=== PATIENT | male | born 1980 | race Caucasian/White ===

== ENCOUNTER 2022-06-21 08:39 | Inpatient (IN) ==
--- NOTE | 2022-06-21 08:58 | Emergency Department Note ---
HPI General Chief complaint: Abdominal Pain Stated complaint: Numbness Time Seen by Provider: 06/21/22 08:57 Source: patient Mode of arrival: ambulatory Limitations: no limitations History of Present Illness HPI Narrative: Narrative: Patient is a 42-year-old male with a history significant for a large amount of alcohol use who presents to the emergency department due to concern for yellow discoloration of his eyes and skin. Patient states that he has had heavy alcohol use until for 5 months ago, and at that time had a decrease from approximately 12 beers a day to 5 or 6 beers a day. He states that about a week ago he noticed yellow discoloration of his eyes and skin, so completely stopped drinking alcohol at that time. He states that since then he has continued to have the yellow discoloration of his skin as well as some abdominal pain. He endorses tremors, but denies any other symptoms at this time. Related Data Home Medications Medication Instructions Recorded Confirmed No Known Home Meds 06/21/22 06/21/22 Allergies Allergy/AdvReac Type Severity Reaction Status Date / Time No Known Drug Allergies Allergy Verified 06/21/22 18:10 Review of Systems ROS ROS Narrative: Narrative: Constitutional: Denies fever or weakness Eyes: Denies eye pain or vision change ENT ED: Denies throat pain, hearing loss or rhinorrhea Cardiovascular: Denies chest pain, dyspnea on exertion, orthopnea or edema Respiratory: Denies shortness of breath or cough Gastrointestinal: Reports abdominal pain; Denies nausea, vomiting, diarrhea, constipation, hematochezia or melena Genitourinary: Denies dysuria, frequency or hematuria Musculoskeletal: Denies back pain or myalgia Integumentary: Denies rash or lesions Neurological: Denies headache, weakness, numbness, confusion, abnormal gait or dizziness Endocrine: Denies fatigue or polyuria Hematological/Lymphatic: Denies easy bleeding or easy bruising [facility] Narrative Patient History Narrative: Narrative: Medical/Surgical/Family History All Active Problems (Updated 06/21/22 @ 19:37 by Mika Redmond MD) Thrombocytopenia (Acute) Anemia, normocytic normochromic (Acute) Coagulopathy (Acute) Transaminitis (Acute) Alcoholic hepatitis without ascites (Acute) Alcohol withdrawal with delirium (Acute) Exam Narrative Narrative: Narrative: General Limitations: no limitations General appearance: Present alert and in no apparent distress; Absent anxious, appears intoxicated or sleepy Head Head: Present atraumatic and normocephalic Eye Eye: Present PERRL, EOMI and scleral icterus; Absent conjunctival injection, nystagmus, miosis (constriction) or mydriasis (dilation) ENT ENT: Present mucous membranes moist; Absent nasal congestion Neck Neck: Present full ROM; Absent tenderness Chest Chest: Present normal inspection and symmetric chest wall rise; Absent tenderness Respiratory Respiratory: Present normal lung sounds bilaterally; Absent respiratory distress or accessory muscle use Cardiovascular Cardiovascular: Present normal rhythm, tachycardia and normal heart sounds Adbominal Abdominal: Present soft and normal bowel sounds; Absent distention or tenderness Extremities Extremities: Present normal inspection and full ROM Back Back: Present normal inspection and full ROM Neurological Neurological: Present alert and oriented X3 Psychiatric Psychiatric: Present normal affect and normal mood Skin Skin: Present warm (WNL), dry and normal color Course Vital Signs Vital signs: Vital Signs Pulse Rate 126 H 06/21/22 08:44 Respiratory Rate 20 06/21/22 08:44 Blood Pressure 150/97 06/21/22 08:44 Pulse Oximetry (%) 98 06/21/22 08:44 Oxygen Delivery Method 06/21/22 08:44 Temperature 99 F 06/21/22 17:15 Pulse Rate 115 H 06/21/22 17:15 Respiratory Rate 14 06/21/22 17:15 Blood Pressure 148/102 06/21/22 17:15 Pulse Oximetry (%) 100 06/21/22 17:15 Oxygen Delivery Method 06/21/22 17:15 [facility] MDM Narrative Medical decision making narrative: Narrative: Patient is a 42-year-old male who presents to the emergency department due to concern for jaundice. Patient does have tremors on exam, and when an attempt was made to perform an EKG patient was unable to stay still, so we were unable to get an adequate EKG. Due to patient's tremors on reevaluation I again asked patient about other symptoms of alcohol withdrawal, and he at that time endorsed visual and auditory hallucinations. Patient denies history of alcohol withdrawal, but due to concern for this patient was given Ativan. He had signif icant improvement in symptoms with the single dose of Ativan. CIWA protocol has been ordered. Patient's labs are significant for an elevated bilirubin. I performed a bedside ultrasound of the gallbladder and did not find gallstones, sludge, pericholecystic fluid, or thickened gallbladder wall. Patient's PT/INR is mildly elevated. I discussed patient with Dr. Mariee and he has agreed to see and evaluate patient for admission due to concern for alcohol withdrawal. Lab Data Result diagrams: 06/21/22 10:33 Labs: Lab Results 06/21/22 06/21/22 06/21/22 Range/Units 10:17 10:20 10:33 WBC 3.3 L (4.5-11.0) K/mcL RBC 4.05 L (4.63-6.08) M/mcL Hgb 13.6 L (13.7-17.5) g/dL Hct 40.3 (40.1-51.0) % POC Hct 44.0 (41-55) MCV 99.5 (80.0-100.0) fL MCH 33.6 (26.0-34.0) pg MCHC 33.7 (31.0-36.0) g/dL RDW 12.5 (11.5-14.5) % Plt Count 43 L* (140-440) K/mcL MPV 10.2 (8.8-12.5) fL Immature Gran % (Auto) 0.3 (0.0-0.5) % Neut % (Auto) 60.2 (38.0-78.0) % Lymph % (Auto) 23.3 (15.5-49.0) % [place] % (Auto) 14.1 H (1.0-12.0) % Eos % (Auto) 1.8 (0.0-7.0) % Baso % (Auto) 0.3 (0.0-2.0) % Lymph # (Auto) 0.76 L (1.50-4.80) K/mcL [place] # (Auto) 0.46 (0.10-0.90) K/mcL Eos # (Auto) 0.06 (0.00-0.70) K/mcL Baso # (Auto) 0.01 (0.00-0.30) K/mcL Immature Gran # 0.01 (0.00-0.05) K/mcl Absolute Neutrophils 1.96 (1.80-8.00) K/mcL PT (11.9-14.5) sec INR (0.9-1.1) Fibrinogen (200-400) mg/dL D-Dimer (0.27-0.50) ug/mL POC Sodium 135 (133-145) POC Potassium 3.3 (3.3-5.1) POC Chloride 95 L (96-108) POC Total CO2 25.0 (22-30) POC BUN 7 (6-20) POC Creatinine 0.7 (0.6-1.2) POC Glucose 100 (70-105) POC WB Ioniz Calcium 1.20 (1.16-1.32) Total Bilirubin (0.1-1.0) mg/dL Direct Bilirubin (<0.3) mg/dL AST (<40) U/L ALT (<40) U/L Alkaline Phosphatase (39-117) U/L Total Protein (5.9-8.4) gm/dL Albumin (3.2-5.2) gm/dL Globulin (2.2-3.7) gm/dL Lipase (7-60) U/L POC Troponin I < 0.02 (0.00-0.08) 06/21/22 06/21/22 06/21/22 Range/Units 10:33 10:33 10:33 WBC (4.5-11.0) K/mcL RBC (4.63-6.08) M/mcL Hgb (13.7-17.5) g/dL Hct (40.1-51.0) % POC Hct (41-55) MCV (80.0-100.0) fL MCH (26.0-34.0) pg MCHC (31.0-36.0) g/dL RDW (11.5-14.5) % Plt Count (140-440) K/mcL MPV (8.8-12.5) fL Immature Gran % (Auto) (0.0-0.5) % Neut % (Auto) (38.0-78.0) % Lymph % (Auto) (15.5-49.0) % [place] % (Auto) (1.0-12.0) % Eos % (Auto) (0.0-7.0) % Baso % (Auto) (0.0-2.0) % Lymph # (Auto) (1.50-4.80) K/mcL [place] # (Auto) (0.10-0.90) K/mcL Eos # (Auto) (0.00-0.70) K/mcL Baso # (Auto) (0.00-0.30) K/mcL Immature Gran # (0.00-0.05) K/mcl Absolute Neutrophils (1.80-8.00) K/mcL PT 17.0 H (11.9-14.5) sec INR 1.3 H (0.9-1.1) Fibrinogen 257 (200-400) mg/dL D-Dimer 1.04 H (0.27-0.50) ug/mL POC Sodium (133-145) POC Potassium (3.3-5.1) POC Chloride (96-108) POC Total CO2 (22-30) POC BUN (6-20) POC Creatinine (0.6-1.2) POC Glucose (70-105) POC WB Ioniz Calcium (1.16-1.32) Total Bilirubin 3.2 H (0.1-1.0) mg/dL Direct Bilirubin 1.1 H (<0.3) mg/dL AST 155 H (<40) U/L ALT 36 (<40) U/L Alkaline Phosphatase 83 (39-117) U/L Total Protein 8.4 (5.9-8.4) gm/dL Albumin 4.7 (3.2-5.2) gm/dL Globulin 3.7 (2.2-3.7) gm/dL Lipase 47 (7-60) U/L POC Troponin I (0.00-0.08) EKG Data EKG #1: EKG attestation: Yes I reviewed and interpreted this EKG. EKG results narrative: Sinus tachycardia with a rate of 101, left axis deviation, VA within normal limits, QRS of 106, QTC of 510, T wave flattening in lead aVF, T wave inversion in lead III, and absence of ST elevation or depression. Discharge Plan Patient/Caregiver Discharge Instructions Pt seen by AUTOMAT[employer]IMMING SEWER/PA only: No Clinical Impression: Alcohol withdrawal with delirium Patient Disposition: Xfer As Inpt ([facility]) Discharge Date/Time: 06/21/22 17:00
[2022-06-21] MEDS ORDERED: 0.9 % SODIUM CHLORIDE 500 ML IV ONE (09:35)
[2022-06-21] MEDS ORDERED: LORazepam 2 MG/ML VIAL IV ONE (10:00)
[2022-06-21 10:25] LABS: POC Calcium, Ionized 1.2 (1.16-1.32); POC Creatinine 0.7 (0.6-1.2); POC Potassium 3.3 (3.3-5.1)
--- NOTE | 2022-06-21 10:27 | XRay Report ---
HISTORY: Chest pain and shortness of breath FINDINGS: The lungs are clear. The heart, mediastinum, pedro and pleura are normal. IMPRESSION: Normal chest. Interpreted and Authenticated by: Patricio Arnold 06/21/22
[2022-06-21 12:02] LABS: INR 1.3 (0.9-1.1)
[2022-06-21 12:36] LABS: ALT/SGPT 36 U/L (<40); AST/SGOT 155 U/L (<40); Albumin 4.7 gm/dL (3.2-5.2); Alkaline Phosphatase 83 U/L (39-117); Bilirubin,Direct 1.1 mg/dL (<0.3); Bilirubin,Total 3.2 mg/dL (0.1-1.0); Globulin 3.7 gm/dL (2.2-3.7)
[2022-06-21] MEDS ORDERED: LORazepam 2 MG/ML VIAL IV PRN ×2 (14:33→17:08)
[2022-06-21 14:51] LABS: Basophils # (Auto) 0.01 K/mcL (0.00-0.30); Basophils % (Auto) 0.3 % (0.0-2.0); Eosinophils # (Auto) 0.06 K/mcL (0.00-0.70); Eosinophils % (Auto) 1.8 % (0.0-7.0); Hematocrit 40.3 % (40.1-51.0); Hemoglobin 13.6 g/dL (13.7-17.5); Lymphocytes # (Auto) 0.76 K/mcL (1.50-4.80); Lymphocytes % (Auto) 23.3 % (15.5-49.0); Mean Cell Volume 99.5 fL (80.0-100.0); Mean Corpuscular HGB Conc 33.7 g/dL (31.0-36.0); Mean Platelet Volume 10.2 fL (8.8-12.5); Monocytes # (Auto) 0.46 K/mcL (0.10-0.90); Monocytes % (Auto) 14.1 % (1.0-12.0); Neutrophils % (Auto) 60.2 % (38.0-78.0); Platelet Count 43 K/mcL (140-440); RBC 4.05 M/mcL (4.63-6.08); Red Cell Distribution Width 12.5 % (11.5-14.5); WBC 3.3 K/mcL (4.5-11.0)
--- NOTE | 2022-06-21 16:44 | Internal Med History&Physical ---
HPI History of Present Illness Patient information: Note initiated : 06/21/22 at 4:38 pm Service Date, if different from initiated Date: [] Patient: Kalin Cosby a 42 y/o M admitted on for Numbness. Chief Complaint: [I want to get sober] Chief complaint: I want to get sober History of present illness: Mr. Cosby is a 42 year old M history of alcoholism presenting with desire to quit drinking. He stated that he has been drinking heavily for the past 13 years. He would typically drink 7 beers per day up until 6 days ago when he decided to cut back on his drinking and now he has been drinking 3-4 beers per day with the last drink earlier today. He has noticed scleral icterus for the past 6 days. He is also complaining of increased hand tremors. He is also complaining of visual and auditory hallucinations he see letters and numbers and he here songs and music's. He denies any nausea or vomiting. He is complaining of insomnia. He denies any anxiety or agitations. He denies having other medical illnesses. He stated that he has tried to quit drinking in the past and he has been staying sober for 2 months by himself without any complications. He has never been to alcohol rehab before. Vital signs significant for mild tachycardia with heart rate in the low 100s with rest of vital signs within normal limits. Labs significant for mildly elevated INR to 1.3. Total bilirubin 3.2 with direct bilirubin 1.1. AST elevated to 155 with ALT normal at 36. Rest of the labs unremarkable. Admission request was called for alcohol withdrawal. Constitutional Constitutional: Absent chills, excessive sweating, fatigue, fever(s) or weakness EENT Eyes: Absent blurry vision, change in vision, loss of vision or other visual disturbances Ears: Absent decreased hearing or tinnitus Nose, mouth and throat: Absent abnormal hearing, dry mouth, headache(s), nasal congestion or sore throat Cardiovascular Cardiovascular: Absent chest pain, chest pain at rest, edema, irregular heart rhythm or palpatations Respiratory Respiratory: Absent cough, dyspnea or wheezing Gastrointestinal Gastrointestinal: Absent abdominal pain, constipation, diarrhea, nausea or vomiting Musculoskeletal Musculoskeletal: Absent back pain, deformity, limited range of motion, muscle cramps, muscle weakness or numbness Integumentary Integumentary: Absent lesions, rash or wounds Neurological Neurological: Present as per HPI and tremor(s); Absent focal weakness, headache(s) or numbness Additional comments: Hallucinations Psychiatric Psychiatric: Absent anxiety, depression or hallucinations PFSH PFSH All Active Problems (Updated 06/21/22 @ 16:46 by Chavez Mariee MD) Thrombocytopenia (Acute) Anemia, normocytic normochromic (Acute) Coagulopathy (Acute) Transaminitis (Acute) Alcoholic hepatitis without ascites (Acute) Alcohol withdrawal with delirium (Acute) EXAM Constitutional Vitals: Pulse Resp BP Pulse Ox O2 Del Method 103 H 20 96/86 97 06/21/22 16:08 06/21/22 08:44 06/21/22 16:02 06/21/22 16:08 06/21/22 08:44 General appearance: cooperative and no acute distress Head Head exam: Present atraumatic and normocephalic Eye Eye exam: Present EOMI and scleral icterus ENT ENT exam: Present mucous membranes moist, normal exam and normal external ear exam Neck Neck exam: Present normal inspection; Absent lymphadenopathy, tenderness or thyromegaly Respiratory Respiratory exam: Absent accessory muscle use, respiratory distress or wheezes Cardiovascular Cardiovascular exam: Present normal rate and rhythm; Absent JVD GI/Abdominal GI/Abdominal exam: Present normal bowel sounds and soft; Absent organomegaly or tenderness Rectal Rectal exam: Present deferred Extremities Exam Extremities exam: Present full ROM, normal capillary refill and normal inspection; Absent tenderness Neurological Exam Neurological exam: Present alert, CN II-XII intact and oriented X3; Absent motor sensory deficit Additional comments: Increased hand tremors Psychiatric Psychiatric exam: Present normal affect and normal mood; Absent anxious or depressed Skin Skin exam: Present dry and intact DATA Data Completed and Pending Labs: Labs from last 24 hours 06/21/22 06/21/22 06/21/22 10:33 10:33 10:33 WBC RBC Hgb Hct POC Hct MCV MCH MCHC RDW Plt Count MPV Immature Gran % (Auto) Neut % (Auto) Lymph % (Auto) [place] % (Auto) Eos % (Auto) Baso % (Auto) Lymph # (Auto) [place] # (Auto) Eos # (Auto) Baso # (Auto) Immature Gran # Absolute Neutrophils PT INR Fibrinogen 257 D-Dimer 1.04 H POC Sodium POC Potassium POC Chloride POC Total CO2 POC BUN POC Creatinine POC Glucose POC WB Ioniz Calcium Total Bilirubin 3.2 H Direct Bilirubin 1.1 H AST 155 H ALT 36 Alkaline Phosphatase 83 Total Protein 8.4 Albumin 4.7 Globulin 3.7 Lipase 47 Hepatitis A IgM Ab Pending Hep Bs Antigen Pending Hep B Core IgM Ab Pending Hepatitis C Antibody Pending POC Troponin I 06/21/22 06/21/22 06/21/22 10:33 10:33 10:20 WBC 3.3 L RBC 4.05 L Hgb 13.6 L Hct 40.3 POC Hct 44.0 MCV 99.5 MCH 33.6 MCHC 33.7 RDW 12.5 Plt Count 43 L* MPV 10.2 Immature Gran % (Auto) 0.3 Neut % (Auto) 60.2 Lymph % (Auto) 23.3 [place] % (Auto) 14.1 H Eos % (Auto) 1.8 Baso % (Auto) 0.3 Lymph # (Auto) 0.76 L [place] # (Auto) 0.46 Eos # (Auto) 0.06 Baso # (Auto) 0.01 Immature Gran # 0.01 Absolute Neutrophils 1.96 PT 17.0 H INR 1.3 H Fibrinogen D-Dimer POC Sodium 135 POC Potassium 3.3 POC Chloride 95 L POC Total CO2 25.0 POC BUN 7 POC Creatinine 0.7 POC Glucose 100 POC WB Ioniz Calcium 1.20 Total Bilirubin Direct Bilirubin AST ALT Alkaline Phosphatase Total Protein Albumin Globulin Lipase Hepatitis A IgM Ab Hep Bs Antigen Hep B Core IgM Ab Hepatitis C Antibody POC Troponin I 06/21/22 10:17 WBC RBC Hgb Hct POC Hct MCV MCH MCHC RDW Plt Count MPV Immature Gran % (Auto) Neut % (Auto) Lymph % (Auto) [place] % (Auto) Eos % (Auto) Baso % (Auto) Lymph # (Auto) [place] # (Auto) Eos # (Auto) Baso # (Auto) Immature Gran # Absolute Neutrophils PT INR Fibrinogen D-Dimer POC Sodium POC Potassium POC Chloride POC Total CO2 POC BUN POC Creatinine POC Glucose POC WB Ioniz Calcium Total Bilirubin Direct Bilirubin AST ALT Alkaline Phosphatase Total Protein Albumin Globulin Lipase Hepatitis A IgM Ab Hep Bs Antigen Hep B Core IgM Ab Hepatitis C Antibody POC Troponin I < 0.02 A/P Assessment and plan (1) Alcohol withdrawal with delirium: Status: Acute (2) Alcoholic hepatitis without ascites: Status: Acute (3) Transaminitis: Status: Acute (4) Coagulopathy: Status: Acute (5) Anemia, normocytic normochromic: Status: Acute (6) Thrombocytopenia: Status: Acute Narrative A/P Narrative: Assessment and Plans: 1. Alcohol withdrawal with delirium: Inpatient PCU with telemetry CIWA protocol with PO Ativan Ativan IV PRN seizure activities Multivitamin Folate Thiamine demand generator manager consult 2. Anemia, normocytic normochromic: Associated with alcoholism, cbc w/ auto diff in the morning to trend H/H 3. Thrombocytopenia: Associated with alcoholism, cbc w/ auto diff in the morning to trend plt count 4. Alcoholic hepatitis with transaminitis: Pending viral hepatitis panel 5. Coagulopathy: Associated with alcoholism, continue to monitor GI ppx: not currently indicated DVT ppx: SCDs Code status: Full Prognosis: guarded Disposition: inpatient PCU Time Spent With Patient Time: Total time spent is greater than 50% in coordination of care (as documented) at patient's floor/unit and/or counseling patient: Total time spent with greater than 50% in coordination of care (as documented) at patient's floor/unit and/or counseling patient:: 50 - 70 minutes
[2022-06-21] MEDS ORDERED: SENNOSIDES 1 TABLET PO PRN (17:08)
[2022-06-21] MEDS ORDERED: LACTULOSE 20 GM/30 ML ORAL.SOL PO PRN (17:08)
[2022-06-21] MEDS ORDERED: ONDANSETRON 4 MG/2 ML VIAL IV PRN (17:08)
[2022-06-21] MEDS ORDERED: IPRATROPIUM/ALBUTEROL 3 ML AMPUL.NEB NEB PRN (17:08)
[2022-06-21] MEDS ORDERED: ACETAMINOPHEN 325 MG TABLET PO PRN (17:08)
[2022-06-21] MEDS ORDERED: cloNIDine HCL 0.1 MG TABLET PO PRN (17:08)
[2022-06-21] MEDS ORDERED: HALOPERIDOL LACTATE 5 MG/ML VIAL IV PRN (17:08)
[2022-06-21] MEDS ORDERED: LORazepam 2 MG/ML VIAL ONE (19:37)
[2022-06-21 19:40] LABS: Hepatitis B Surface Antigen Negative (Negative); Hepatitis C Virus Antibody Non-Reactive (Non-Reactive)
[2022-06-21] MEDS: 0.9 % SODIUM CHLORIDE 10 ML SYRINGE IV SCH (20:32)
[2022-06-21] MEDS: DOCUSATE SODIUM 100 MG CAPSULE PO SCH (20:32)
[2022-06-21] MEDS ORDERED: 0.9 % SODIUM CHLORIDE 10 ML SYRINGE IV SCH (22:00)
[2022-06-21] MEDS: LORazepam 2 MG/ML VIAL IV PRN (22:59)
[2022-06-21] MEDS: LORazepam 1 MG TABLET PO PRN (22:59)
[2022-06-22] MEDS: LORazepam 2 MG/ML VIAL IV PRN ×4 (01:43→04:45)
[2022-06-22] MEDS ORDERED: LORazepam 2 MG/ML VIAL ONE (03:54)
[2022-06-22] MEDS: DEXMEDETOMIDINE 400 MCG in PREMIX 1 BAG IV SCH ×2 (04:55→08:32)
[2022-06-22] MEDS: 0.9 % SODIUM CHLORIDE 10 ML SYRINGE IV SCH ×3 (05:58→21:17)
[2022-06-22 07:22] LABS: Basophils # (Auto) 0.02 K/mcL (0.00-0.30); Basophils % (Auto) 0.7 % (0.0-2.0); Eosinophils # (Auto) 0.05 K/mcL (0.00-0.70); Eosinophils % (Auto) 1.7 % (0.0-7.0); Hematocrit 37.8 % (40.1-51.0); Hemoglobin 12.5 g/dL (13.7-17.5); Lymphocytes # (Auto) 0.48 K/mcL (1.50-4.80); Lymphocytes % (Auto) 16.4 % (15.5-49.0); Mean Cell Volume 102.2 fL (80.0-100.0); Mean Corpuscular HGB Conc 33.1 g/dL (31.0-36.0); Mean Platelet Volume 10.2 fL (8.8-12.5); Monocytes # (Auto) 0.42 K/mcL (0.10-0.90); Monocytes % (Auto) 14.4 % (1.0-12.0); Neutrophils % (Auto) 66.5 % (38.0-78.0); Platelet Count 43 K/mcL (140-440); Red Cell Distribution Width 12.8 % (11.5-14.5); WBC 2.9 K/mcL (4.5-11.0)
[2022-06-22 07:42] LABS: ALT/SGPT 32 U/L (<40); AST/SGOT 123 U/L (<40); Albumin 4.2 gm/dL (3.2-5.2); Albumin/Globulin Ratio 1.3 (1.0-2.3); Alkaline Phosphatase 77 U/L (39-117); Bilirubin,Total 2.5 mg/dL (0.1-1.0); Blood Urea Nitrogen 8 mg/dL (6-20); Calcium 9.3 mg/dL (8.6-10.4); Carbon Dioxide 21 mmol/L (22-30); Chloride 99 mmol/L (96-108); Globulin 3.3 gm/dL (2.2-3.7); Glomerular Filtration Rate 111; Glucose 142 mg/dL (70-105)
--- NOTE | 2022-06-22 08:52 | Internal Med Progress Note ---
SUBJECTIVE Subjective Patient information: Note initiated : 06/22/22 at 8:47 am Service Date, if different from initiated Date: [] Patient: Kalin Cosby a 42 y/o M admitted on 06/21/22 for Numbness. Chief Complaint: [] Interval history: Mr. Cosby is a 42 year old M history of alcoholism presenting with desire to quit drinking. He stated that he has been drinking heavily for the past 13 years. He would typically drink 7 beers per day up until 6 days ago when he decided to cut back on his drinking and now he has been drinking 3-4 beers per day with the last drink earlier today. He has noticed scleral icterus for the past 6 days. He is also complaining of increased hand tremors. He is also complaining of visual and auditory hallucinations he see letters and numbers and he here songs and music's. He denies any nausea or vomiting. He is complaining of insomnia. He denies any anxiety or agitations. He denies having other medical illnesses. He stated that he has tried to quit drinking in the past and he has been staying sober for 2 months by himself without any complications. He has never been to alcohol rehab before. Vital signs significant for mild tachycardia with heart rate in the low 100s with rest of vital signs within normal limits. Labs significant for mildly elevated INR to 1.3. Total bilirubin 3.2 with direct bilirubin 1.1. AST elevated to 155 with ALT normal at 36. Rest of the labs unremarkable. Admission request was called for alcohol withdrawal. 06/22: Patient has a rough night overnight. His Seroquel score was as high as 31. He was agitated and trying to get out of the bed. As a result, he was transferred to ICU, restrained placed, and Precedex drip was started. He is currently still mentally altered. In additions, his serum potassium level found to be depressed at 3.1. He is not awake and alert enough to take anything p.o. We will keep the patient in the ICU. We will keep the Precedex drip. We will keep restraint order. Add Ativan 1 mg IV every 4 hours. Add banana bag IV i nfusions. Potassium replacement IV, switched to scheduled p.o. when he can tolerate p.o. intakes. Pending test case developer evaluations for rehab referral when clinically appropriate. Constitutional Vitals: Vital Signs Temp Pulse Resp BP Pulse Ox O2 Del Method O2 Flow Rate 36.1 C 78 15 100/70 100 1 06/22/22 08:01 06/22/22 08:01 06/22/22 08:01 06/22/22 08:01 06/22/22 08:01 06/22/22 08:01 06/22/22 08:01 Period Temp Pulse Resp BP Sys/Rosen Pulse Ox O2 Del Method O2 Flow Rate Last 24 Hr 36.1 C-37.6 C 78-119 14-28 95-155/62-142 89-100 Nasal Cannula- Room Air 1-1 Intake and Output 06/21/22 06/22/22 06/22/22 19:59 03:59 11:59 Intake Total 500 1080 480 Output Total 600 Balance 500 1080 -120 Weight 87.906 kg Intake & Output: Intake & Output 06/21/22 06/22/22 06/22/22 19:59 03:59 11:59 Intake Total 500 1080 480 Output Total 600 Balance 500 1080 -120 Weight 87.906 kg Intake: IV 500 80 Sodium Chloride 0.9% 500 ml @ 500 Wide Open IV [facility] Rx#: [id number] Precedex 400 Mcg/100 ml 80 Dextrose 400 Mcg In Premix 1 Bag @ 0.2 MCG/KG/HR 4.395 mls/ hr IV .[id number] [facility] Rx#: [id number] Oral 1080 400 Output: Void Amount 600 Other: Meal Dinner Percent of Meal Consumed 100% Urine Appearance Clear Urine Color Dark Asha Urine Odor Strong General appearance: no cooperative Exam: altered Head Head exam: Present atraumatic and normal inspection Eye Eye exam: Present normal appearance ENT ENT exam: Present mucous membranes moist, normal exam and normal external ear exam Neck Neck exam: Present normal inspection Respiratory Respiratory exam: Present normal respiratory exam Cardiovascular Cardiovascular exam: Present normal rate and rhythm GI/Abdominal GI/Abdominal exam: Present normal bowel sounds Back Exam Back exam: Present normal inspection Neurological Exam Neurological exam: Present alert and altered; Absent oriented X3 Additional comments: increased hands tremors Skin Skin exam: Present intact and warm OBJ DATA Labs CBC & Chem 7: 06/22/22 06:04 06/22/22 06:04 Labs: Abnormal Lab Results 06/22/22 06/22/22 06/21/22 06:04 06:04 10:33 WBC 2.9 L RBC 3.70 L Hgb 12.5 L Hct 37.8 L MCV 102.2 H Plt Count 43 L* [place] % (Auto) 14.4 H Lymph # (Auto) 0.48 L PT INR D-Dimer 1.04 H Potassium 3.1 L POC Chloride Carbon Dioxide 21 L Glucose 142 H Total Bilirubin 2.5 H Direct Bilirubin AST 123 H 06/21/22 06/21/22 06/21/22 10:33 10:33 10:33 WBC 3.3 L RBC 4.05 L Hgb 13.6 L Hct MCV Plt Count 43 L* [place] % (Auto) 14.1 H Lymph # (Auto) 0.76 L PT 17.0 H INR 1.3 H D-Dimer Potassium POC Chloride Carbon Dioxide Glucose Total Bilirubin 3.2 H Direct Bilirubin 1.1 H AST 155 H 06/21/22 10:20 WBC RBC Hgb Hct MCV Plt Count [place] % (Auto) Lymph # (Auto) PT INR D-Dimer Potassium POC Chloride 95 L Carbon Dioxide Glucose Total Bilirubin Direct Bilirubin AST Meds: Medications Acetaminophen (Acetaminophen 325 Mg Tablet) 650 mg PO Q6HP PRN; Protocol PRN Reason: Per Pain Protocol/Fever > 101 Albuterol/Ipratropium (Ipratropium/Albuterol 3 Ml Ampul.Neb) 3 ml NEB Q4HRT PRN PRN Reason: Wheezing Clonidine HCl (Clonidine Hcl 0.1 Mg Tablet) 0.1 mg PO Q4HP PRN PRN Reason: ALC Docusate Sodium (Docusate Sodium 100 Mg Capsule) 100 mg PO BID [facility] Last Admin: 06/21/22 20:32 Dose: Not Given Folic Acid (Folic Acid 1 Mg Tablet) 1 mg PO DAILY [facility] Haloperidol Lactate (Haloperidol Lactate 5 Mg/Ml Vial) 0.5 mg IV Q2HP PRN PRN Reason: Alcohol Withdrawal/Assess CIWA Dexmedetomidine HCl 400 mcg/ (Premix) 100 mls @ 4.395 mls/hr IV .[id number] [facility]; Protocol Last Admin: 06/22/22 08:32 Dose: 0.8 mcg/kg/hr, 17.581 mls/hr Potassium Chloride 20 meq/ (Dextrose) 260 mls @ 130 mls/hr IV ONCE ONE Stop: 06/22/22 10:44 Iron Carb/Multivit/[place]/Folic Acid (Multivit,Ther Iron,Ca,Fa & Min 1 Tablet) 1 tab PO DAILY [facility] Lactulose (Lactulose 20 Gm/30 Ml Oral.Mary) 10 gm PO DAILYP PRN PRN Reason: Constipation Lorazepam (Lorazepam 1 Mg Tablet) 0 mg PO Q4HP PRN; Protocol PRN Reason: Alcohol Withdrawal/Assess CIWA Lorazepam (Lorazepam 2 Mg/Ml Vial) 1 mg IV Q1HP PRN PRN Reason: Seizure Activity Lorazepam (Lorazepam 2 Mg/Ml Vial) 0 mg IV Q1HP PRN; Protocol PRN Reason: Alcohol Withdrawal/Assess CIWA Last Admin: 06/22/22 04:45 Dose: 4 mg Ondansetron HCl (Ondansetron 4 Mg/2 Ml Vial) 4 mg IV Q4HP PRN; Protocol PRN Reason: Nausea And Vomiting Potassium Chloride (Potassium Chloride 20 Meq Tablet) 20 meq PO BIDCC [facility] Senna (Sennosides 1 Tablet) 2 tab PO HSP PRN PRN Reason: Constipation Sodium Chloride (0.9 % Sodium Chloride 10 Ml Syringe) 10 ml IV Q8 [facility] Last Admin: 06/22/22 05:58 Dose: Not Given Thiamine HCl (Thiamine 100 Mg Tablet) 100 mg PO QDAY [facility] A/P Assessment and plan (1) Alcohol withdrawal with delirium: Status: Acute (2) Alcoholic hepatitis without ascites: Status: Acute (3) Transaminitis: Status: Acute (4) Coagulopathy: Status: Acute (5) Anemia, normocytic normochromic: Status: Acute (6) Thrombocytopenia: Status: Acute (7) Delirium tremens: Status: Acute Narrative A/P Narrative: Assessment and Plans: 1. Delirium tremens: Transfer to ICU due to worsening alcohol withdrawal symptoms [facility] protocol with Precedex drip Ativan 1mg IV q4hr [facility] Restrains order Ativan IV PRN seizure activities Multivitamin Folate Thiamine Banana bag IV infusion manager style consult 2. Anemia, normocytic normochromic: Associated with alcoholism, cbc w/ auto diff in the morning to trend H/H 3. Thrombocytopenia: Associated with alcoholism, cbc w/ auto diff in the morning to trend plt count 4. Alcoholic hepatitis with transaminitis: Pending viral hepatitis panel 5. Coagulopathy: Associated with alcoholism, continue to monitor 6. Hypokalemia: Potassium replacement IV, switched to scheduled p.o. when he can tolerate p.o. intakes CMP in the morning to trend serum potassium level Also check serum Mg level, and replace if needed GI ppx: Protonix IV DVT ppx: SCDs Code status: Full Prognosis: guarded Disposition: inpatient ICU Critical Care Time: 45min Time Spent With Patient Time: Total time spent is greater than 50% in coordination of care (as documented) at patient's floor/unit and/or counseling patient: Total time spent with greater than 50% in coordination of care (as documented) at patient's floor/unit and/or counseling patient:: 35 - 50 minutes Critical Care Time: Yes Total Critical Care Time: 45 QUALITY Restraints Restraint In Place: Yes Reason for restraints: self harm; harm to staffs; agitation, trying to get out of bed
[2022-06-22] MEDS ORDERED: POTASSIUM CHLORIDE 20 MEQ in DEXTROSE 5% IN WATER 250 ML IV ONE (09:00)
[2022-06-22] MEDS: FOLIC ACID 1 MG TABLET PO SCH (10:19)
[2022-06-22] MEDS: MULTIVIT,THER IRON,CA,FA & MIN 1 TABLET PO SCH (10:19)
[2022-06-22] MEDS: DOCUSATE SODIUM 100 MG CAPSULE PO SCH ×2 (10:19→21:17)
[2022-06-22] MEDS: THIAMINE 100 MG TABLET PO SCH (10:20)
[2022-06-22] MEDS ORDERED: LORazepam 2 MG/ML VIAL IV SCH (10:55)
[2022-06-22] MEDS ORDERED: [UNRECOGNIZED DRUG - OTHER] IV SCH (12:00)
[2022-06-22] MEDS ORDERED: MAGNESIUM SULFATE IV SCH (12:00)
[2022-06-22] MEDS ORDERED: THIAMINE IV SCH (12:00)
[2022-06-22] MEDS ORDERED: POTASSIUM CHLORIDE IV SCH (12:00)
[2022-06-22] MEDS: LORazepam 2 MG/ML VIAL IV SCH ×3 (13:32→21:16)
[2022-06-22] MEDS: POTASSIUM CHLORIDE 20 MEQ TABLET PO SCH (17:45)
[2022-06-22] MEDS: 0.9 % SODIUM CHLORIDE 250 ML IV SCH (22:09)
[2022-06-23] MEDS: LORazepam 2 MG/ML VIAL IV SCH ×3 (02:36→08:37)
[2022-06-23] MEDS: DEXMEDETOMIDINE 400 MCG in PREMIX 1 BAG IV SCH (02:37)
[2022-06-23] MEDS: 0.9 % SODIUM CHLORIDE 10 ML SYRINGE IV SCH ×2 (05:38→14:04)
[2022-06-23 06:47] LABS: Basophils # (Auto) 0.02 K/mcL (0.00-0.30); Basophils % (Auto) 0.5 % (0.0-2.0); Eosinophils # (Auto) 0.13 K/mcL (0.00-0.70); Eosinophils % (Auto) 3.4 % (0.0-7.0); Hematocrit 36.7 % (40.1-51.0); Hemoglobin 12.2 g/dL (13.7-17.5); Lymphocytes # (Auto) 0.86 K/mcL (1.50-4.80); Lymphocytes % (Auto) 22.8 % (15.5-49.0); Mean Corpuscular HGB Conc 33.2 g/dL (31.0-36.0); Mean Platelet Volume 10.2 fL (8.8-12.5); Monocytes # (Auto) 0.51 K/mcL (0.10-0.90); Monocytes % (Auto) 13.5 % (1.0-12.0); Neutrophils % (Auto) 59.8 % (38.0-78.0); Platelet Count 48 K/mcL (140-440); RBC 3.53 M/mcL (4.63-6.08); Red Cell Distribution Width 12.8 % (11.5-14.5); WBC 3.8 K/mcL (4.5-11.0)
[2022-06-23 06:54] LABS: ALT/SGPT 36 U/L (<40); AST/SGOT 120 U/L (<40); Albumin 3.7 gm/dL (3.2-5.2); Albumin/Globulin Ratio 1.2 (1.0-2.3); Alkaline Phosphatase 70 U/L (39-117); Blood Urea Nitrogen 8 mg/dL (6-20); Calcium 8.2 mg/dL (8.6-10.4); Carbon Dioxide 21 mmol/L (22-30); Chloride 104 mmol/L (96-108); Globulin 3.2 gm/dL (2.2-3.7); Glomerular Filtration Rate 111; Glucose 89 mg/dL (70-105)
--- NOTE | 2022-06-23 07:27 | EKG ---
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
[2022-06-23] MEDS: PANTOPRAZOLE 40 MG VIAL IV SCH (07:50)
[2022-06-23] MEDS: POTASSIUM CHLORIDE 20 MEQ TABLET PO SCH ×2 (07:50→17:12)
[2022-06-23] MEDS: DOCUSATE SODIUM 100 MG CAPSULE PO SCH (08:37)
[2022-06-23] MEDS: FOLIC ACID 1 MG TABLET PO SCH (08:39)
[2022-06-23] MEDS: THIAMINE 100 MG TABLET PO SCH (08:39)
[2022-06-23] MEDS: MULTIVIT,THER IRON,CA,FA & MIN 1 TABLET PO SCH (08:39)
--- NOTE | 2022-06-23 09:09 | Internal Med Progress Note ---
SUBJECTIVE Subjective Patient information: Note initiated : 06/23/22 at 9:02 am Service Date, if different from initiated Date: [] Patient: Kalin Cosby a 42 y/o M admitted on 06/21/22 for Numbness. Chief Complaint: [] Interval history: Mr. Cosby is a 42 year old M history of alcoholism presenting with desire to quit drinking. He stated that he has been drinking heavily for the past 13 years. He would typically drink 7 beers per day up until 6 days ago when he decided to cut back on his drinking and now he has been drinking 3-4 beers per day with the last drink earlier today. He has noticed scleral icterus for the past 6 days. He is also complaining of increased hand tremors. He is also complaining of visual and auditory hallucinations he see letters and numbers and he here songs and music's. He denies any nausea or vomiting. He is complaining of insomnia. He denies any anxiety or agitations. He denies having other medical illnesses. He stated that he has tried to quit drinking in the past and he has been staying sober for 2 months by himself without any complications. He has never been to alcohol rehab before. Vital signs significant for mild tachycardia with heart rate in the low 100s with rest of vital signs within normal limits. Labs significant for mildly elevated INR to 1.3. Total bilirubin 3.2 with direct bilirubin 1.1. AST elevated to 155 with ALT normal at 36. Rest of the labs unremarkable. Admission request was called for alcohol withdrawal. 06/22: Patient has a rough night overnight. His Seroquel score was as high as 31. He was agitated and trying to get out of the bed. As a result, he was transferred to ICU, restrained placed, and Precedex drip was started. He is currently still mentally altered. In additions, his serum potassium level found to be depressed at 3.1. He is not awake and alert enough to take anything p.o. We will keep the patient in the ICU. We will keep the Precedex drip. We will keep restraint order. Add Ativan 1 mg IV every 4 hours. Add banana bag IV i nfusions. Potassium replacement IV, switched to scheduled p.o. when he can tolerate p.o. intakes. Pending case advocate evaluations for rehab referral when clinically appropriate. 06/23: CIWA score 4 this morning. Precedex drip was being switched off at 0730. Hand restrains were also being discontinued. No seizures overnight. No reported hallucinations. Alert and oriented X2 to person and place. Tolerating food and oral medications. We will keep the patient in the ICU. d/c scheduled IV Ativan. Saline lock. Continue CIWA protocol with Ativan PO PRN according to the protocol. Continue potassium chloride oral replacement. Pending case advocate evaluations for rehab referral when clinically appropriate. Constitutional Vitals: Vital Signs Temp Pulse Resp BP Pulse Ox O2 Del Method O2 Flow Rate 37.2 C 73 16 90/55 99 0 06/23/22 08:01 06/23/22 02:01 06/23/22 08:01 06/23/22 08:01 06/23/22 08:01 06/23/22 07:54 06/22/22 20:00 Period Temp Pulse Resp BP Sys/Rosen Pulse Ox O2 Del Method O2 Flow Rate Last 24 Hr 36.2 C-37.2 C 70-74 14-19 85-107/47-79 94-99 Nasal Cannula- Room Air, Nasal Cannula 0-1 Intake and Output 06/22/22 06/23/22 06/23/22 19:59 03:59 11:59 Intake Total 340 1059.2 821 Output Total 826 0 625 Balance -486 1059.2 196 Weight 88.587 kg Intake & Output: Intake & Output 06/22/22 06/23/22 06/23/22 19:59 03:59 11:59 Intake Total 340 1059.2 821 Output Total 826 0 625 Balance -486 1059.2 196 Weight 88.587 kg Intake: IV 290 1059.2 21 Precedex 400 Mcg/100 ml 30 44 21 Dextrose 400 Mcg In Premix 1 Bag @ 0.2 MCG/KG/HR 4.395 mls/ hr IV .[id number] [facility] Rx#: [id number] Potassium Chloride 20 Meq In 260 Dextrose 5% in Water 250 ml @ 130 mls/hr IV ONCE ONE Rx#: [id number] Potassium Chloride 20 Meq 1015.2 Magnesium Sulfate 16.24 Meq Vitamin B1 100 mg Folic Acid 1 mg In Sodium Chloride 0.9% 1, 000 ml @ 100 mls/hr IV .[id number] [facility] Rx#:[id number] Oral 50 0 800 Output: Void Amount 825 0 625 # of times incontinent of urine 1 Other: Meal Dinner Percent of Meal Consumed Refused Urine Appearance Clear Clear Urine Color Light Asha Dark Asha Urine Odor Normal Stool Size Large Stool Color Brown Stool Consistency Liquid Loose # Bowel Movements 1 # of times incontinent of 1 Bowels Exam: altered Head Head exam: Present atraumatic and normal inspection Eye Eye exam: Present normal appearance ENT ENT exam: Present mucous membranes moist, normal exam and normal external ear e xam Neck Neck exam: Present normal inspection Respiratory Respiratory exam: Present normal respiratory exam Cardiovascular Cardiovascular exam: Present normal rate and rhythm GI/Abdominal GI/Abdominal exam: Present normal bowel sounds Back Exam Back exam: Present normal inspection Neurological Exam Neurological exam: Present alert; Absent oriented X3 Additional comments: oriented X2 to person and place only Increased hand tremors Skin Skin exam: Present intact and warm OBJ DATA Labs CBC & Chem 7: 06/23/22 05:22 06/23/22 05:22 Labs: Abnormal Lab Results 06/23/22 06/23/22 06/22/22 05:22 05:22 06:04 WBC 3.8 L RBC 3.53 L Hgb 12.2 L Hct 36.7 L MCV 104.0 H MCH 34.6 H Plt Count 48 L* [place] % (Auto) 13.5 H Lymph # (Auto) 0.86 L PT INR D-Dimer Potassium 3.1 L POC Chloride Carbon Dioxide 21 L 21 L Glucose 142 H Calcium 8.2 L Total Bilirubin 2.0 H 2.5 H Direct Bilirubin AST 120 H 123 H 06/22/22 06/21/22 06/21/22 06:04 10:33 10:33 WBC 2.9 L RBC 3.70 L Hgb 12.5 L Hct 37.8 L MCV 102.2 H MCH Plt Count 43 L* [place] % (Auto) 14.4 H Lymph # (Auto) 0.48 L PT INR D-Dimer 1.04 H Potassium POC Chloride Carbon Dioxide Glucose Calcium Total Bilirubin 3.2 H Direct Bilirubin 1.1 H AST 155 H 06/21/22 06/21/22 06/21/22 10:33 10:33 10:20 WBC 3.3 L RBC 4.05 L Hgb 13.6 L Hct MCV MCH Plt Count 43 L* [place] % (Auto) 14.1 H Lymph # (Auto) 0.76 L PT 17.0 H INR 1.3 H D-Dimer Potassium POC Chloride 95 L Carbon Dioxide Glucose Calcium Total Bilirubin Direct Bilirubin AST Meds: Medications Acetaminophen (Acetaminophen 325 Mg Tablet) 650 mg PO Q6HP PRN; Protocol PRN Reason: Per Pain Protocol/Fever > 101 Albuterol/Ipratropium (Ipratropium/Albuterol 3 Ml Ampul.Neb) 3 ml NEB Q4HRT PRN PRN Reason: Wheezing Clonidine HCl (Clonidine Hcl 0.1 Mg Tablet) 0.1 mg PO Q4HP PRN PRN Reason: ALC Docusate Sodium (Docusate Sodium 100 Mg Capsule) 100 mg PO BID [facility] Last Admin: 06/23/22 08:37 Dose: Not Given Folic Acid (Folic Acid 1 Mg Tablet) 1 mg PO DAILY [facility] Last Admin: 06/23/22 08:39 Dose: 1 mg Haloperidol Lactate (Haloperidol Lactate 5 Mg/Ml Vial) 0.5 mg IV Q2HP PRN PRN Reason: Alcohol Withdrawal/Assess CIWA Dexmedetomidine HCl 400 mcg/ (Premix) 100 mls @ 4.395 mls/hr IV .[id number] [facility]; Protocol Last Titration: 06/23/22 07:30 Dose: 0 mcg/kg/hr, 0 mls/hr Sodium Chloride (Sodium Chloride 0.9%) 250 mls @ 20 mls/hr IV .[id number] [facility] Last Admin: 06/22/22 22:09 Dose: 20 mls/hr Iron Carb/Multivit/[place]/Folic Acid (Multivit,Ther Iron,Ca,Fa & Min 1 Tablet) 1 tab PO DAILY [facility] Last Admin: 06/23/22 08:39 Dose: 1 tab Lactulose (Lactulose 20 Gm/30 Ml Oral.Mary) 10 gm PO DAILYP PRN PRN Reason: Constipation Lorazepam (Lorazepam 1 Mg Tablet) 0 mg PO Q4HP PRN; Protocol PRN Reason: Alcohol Withdrawal/Assess CIWA Lorazepam (Lorazepam 2 Mg/Ml Vial) 1 mg IV Q4H [facility] Last Admin: 06/23/22 08:37 Dose: Not Given Ondansetron HCl (Ondansetron 4 Mg/2 Ml Vial) 4 mg IV Q4HP PRN; Protocol PRN Reason: Nausea And Vomiting Pantoprazole Sodium (Pantoprazole 40 Mg Vial) 40 mg IV QAMAC [facility] Last Admin: 06/23/22 07:50 Dose: 40 mg Potassium Chloride (Potassium Chloride 20 Meq Tablet) 20 meq PO BIDCC [facility] Last Admin: 06/23/22 07:50 Dose: 20 meq Senna (Sennosides 1 Tablet) 2 tab PO HSP PRN PRN Reason: Constipation Sodium Chloride (0.9 % Sodium Chloride 10 Ml Syringe) 10 ml IV Q8 [facility] Last Admin: 06/23/22 05:38 Dose: 10 ml Thiamine HCl (Thiamine 100 Mg Tablet) 100 mg PO QDAY [facility] Last Admin: 06/23/22 08:39 Dose: 100 mg A/P Assessment and plan (1) Alcohol withdrawal with delirium: Status: Acute (2) Alcoholic hepatitis without ascites: Status: Acute (3) Transaminitis: Status: Acute (4) Coagulopathy: Status: Acute (5) Anemia, normocytic normochromic: Status: Acute (6) Thrombocytopenia: Status: Acute Narrative A/P Narrative: Assessment and Plans: 1. Delirium tremens: Stays in inpatient ICU CIWA protocol with Ativan PO PRN withdrawal symptoms; Precedex drip stands by d/c scheduled IV Ativan Ativan IV PRN seizure activities Multivitamin Folate Thiamine s/p Banana bag IV infusion X1 donor relations manager consult for potential alcohol rehab referral 2. Anemia, normocytic normochromic: Associated with alcoholism, cbc w/ auto diff in the morning to trend H/H 3. Thrombocytopenia: Associated with alcoholism, cbc w/ auto diff in the morning to trend plt count 4. Alcoholic hepatitis with transaminitis: Pending viral hepatitis panel 5. Coagulopathy: Associated with alcoholism, continue to monitor 6. Hypokalemia: Potassium PO replacement CMP in the morning to trend serum potassium level Also check serum Mg level, and replace if needed GI ppx: Protonix IV DVT ppx: SCDs Code status: Full Prognosis: guarded Disposition: inpatient ICU Critical Care Time: 35min Time Spent With Patient Time: Total time spent is greater than 50% in coordination of care (as documented) at patient's floor/unit and/or counseling patient: Total time spent with greater than 50% in coordination of care (as documented) at patient's floor/unit and/or counseling patient:: 35 - 50 minutes QUALITY Restraints Restraint In Place: No
[2022-06-23] MEDS: 0.9 % SODIUM CHLORIDE 250 ML IV SCH (09:28)
[2022-06-24] MEDS: 0.9 % SODIUM CHLORIDE 10 ML SYRINGE IV SCH ×2 (01:21→05:32)
[2022-06-24] MEDS: DOCUSATE SODIUM 100 MG CAPSULE PO SCH ×2 (01:21→08:49)
[2022-06-24] MEDS: 0.9 % SODIUM CHLORIDE 250 ML IV SCH (01:21)
[2022-06-24] MEDS: DEXMEDETOMIDINE 400 MCG in PREMIX 1 BAG IV SCH (05:32)
[2022-06-24 06:49] LABS: Basophils # (Auto) 0.02 K/mcL (0.00-0.30); Basophils % (Auto) 0.5 % (0.0-2.0); Eosinophils # (Auto) 0.12 K/mcL (0.00-0.70); Eosinophils % (Auto) 2.8 % (0.0-7.0); Hematocrit 37.4 % (40.1-51.0); Hemoglobin 12.3 g/dL (13.7-17.5); Lymphocytes # (Auto) 1.24 K/mcL (1.50-4.80); Mean Cell Volume 104.5 fL (80.0-100.0); Mean Corpuscular HGB Conc 32.9 g/dL (31.0-36.0); Mean Platelet Volume 9.6 fL (8.8-12.5); Monocytes # (Auto) 0.67 K/mcL (0.10-0.90); Monocytes % (Auto) 15.7 % (1.0-12.0); Neutrophils % (Auto) 51.8 % (38.0-78.0); Platelet Count 51 K/mcL (140-440); RBC 3.58 M/mcL (4.63-6.08); Red Cell Distribution Width 12.7 % (11.5-14.5); WBC 4.3 K/mcL (4.5-11.0)
[2022-06-24 07:00] LABS: ALT/SGPT 35 U/L (<40); AST/SGOT 103 U/L (<40); Albumin 3.8 gm/dL (3.2-5.2); Albumin/Globulin Ratio 1.2 (1.0-2.3); Alkaline Phosphatase 72 U/L (39-117); Bilirubin,Total 1.7 mg/dL (0.1-1.0); Blood Urea Nitrogen 8 mg/dL (6-20); Calcium 8.3 mg/dL (8.6-10.4); Carbon Dioxide 19 mmol/L (22-30); Chloride 102 mmol/L (96-108); Globulin 3.1 gm/dL (2.2-3.7); Glomerular Filtration Rate 111; Glucose 73 mg/dL (70-105)
[2022-06-24] MEDS: PANTOPRAZOLE 40 MG VIAL IV SCH (07:25)
[2022-06-24] MEDS: POTASSIUM CHLORIDE 20 MEQ TABLET PO SCH (07:25)
[2022-06-24] MEDS: THIAMINE 100 MG TABLET PO SCH (08:49)
[2022-06-24] MEDS: FOLIC ACID 1 MG TABLET PO SCH (08:49)
[2022-06-24] MEDS: MULTIVIT,THER IRON,CA,FA & MIN 1 TABLET PO SCH (08:49)
[2022-06-24] MEDS: LORazepam 1 MG TABLET PO PRN (09:55)
--- NOTE | 2022-06-24 11:49 | Discharge Summary ---
Discharge Provider Provider IMPORTANT FOLLOW-UP INFORMATION FOR PCP: Patient information: Note initiated : 06/24/22 at 11:46 am Service Date, if different from initiated Date: [] Patient: Kalin Cosby 42 y/o M admitted on 06/21/22 for Numbness-Alcohol Withdrawal. Chief Complaint: [] Date of admission: 06/21/22 17:00 Discharge date: 06/24/22 Primary care physician: PCP No Attending physician on admission: Chavez Mariee Consults: 06/21/22 Consult to Physician [CONS] Stat Comment: Consulting Provider: Chavez Mariee Reason For Exam: Physician to Consult Attending physician on discharge: Chavez Mariee COURSE Hospital Course Hospital course: Mr. Cosby is a 42 year old M history of alcoholism presenting with desire to quit drinking. He stated that he has been drinking heavily for the past 13 years. He would typically drink 7 beers per day up until 6 days ago when he decided to cut back on his drinking and now he has been drinking 3-4 beers per day with the last drink earlier today. He has noticed scleral icterus for the past 6 days. He is also complaining of increased hand tremors. He is also complaining of visual and auditory hallucinations he see letters and numbers and he here songs and music's. He denies any nausea or vomiting. He is complaining of insomnia. He denies any anxiety or agitations. He denies having other medical illnesses. He stated that he has tried to quit drinking in the past and he has been staying sober for 2 months by himself without any complications. He has never been to alcohol rehab before. Vital signs significant for mild tachycardia with heart rate in the low 100s with rest of vital signs within normal limits. Labs significant for mildly elevated INR to 1.3. Total bilirubin 3.2 with direct bilirubin 1.1. AST elevated to 155 with ALT normal at 36. Rest of the labs unremarkable. Admission request was called for alcohol withdrawal. 06/22: Patient has a rough night overnight. His Seroquel score was as high as 31. He was agitated and trying to get out of the bed. As a result, he was transferred to ICU, restrained placed, and Precedex drip was started. He is currently still mentally altered. In additions, his serum potassium level found to be depressed at 3.1. He is not awake and alert enough to take anything p.o. We will keep the patient in the ICU. We will keep the Precedex drip. We will keep restraint order. Add Ativan 1 mg IV every 4 hours. Add banana bag IV infusions. Potassium replacement IV, switched to scheduled p.o. when he can tolerate p.o. intakes. Pending human services case manager evaluations for rehab referral when clinically appropriate. 06/23: CIWA score 4 this morning. Precedex drip was being switched off at 0730. Hand restrains were also being discontinued. No seizures overnight. No reported hallucinations. Alert and oriented X2 to person and place. Tolerating food and oral medications. We will keep the patient in the ICU. d/c scheduled IV Ativan. Saline lock. Continue CIWA protocol with Ativan PO PRN according to the protocol. Continue potassium chloride oral replacement. Pending human services case manager evaluations for rehab referral when clinically appropriate. 06/24: Discharged Discharge diagnosis: Delirium tremens Time Spent with Patient Time attestation: Total time spent providing and/or coordinating discharge services: Time spent: Less than 30 minutes EXAM Constitutional Vitals: Temp Pulse Resp BP Pulse Ox O2 Del Method O2 Flow Rate 36.6 C 98 H 16 122/87 96 0 06/24/22 08:01 06/24/22 11:04 06/24/22 11:04 06/24/22 11:04 06/24/22 11:04 06/24/22 07:36 06/22/22 20:00 General appearance: cooperative and no acute distress Head Head exam: Present atraumatic and normocephalic Eye Eye exam: Present EOMI and PERRL ENT ENT exam: Present mucous membranes moist, normal exam and normal external ear exam Neck Neck exam: Present normal inspection; Absent lymphadenopathy, tenderness or thyromegaly Respiratory Respiratory exam: Absent accessory muscle use, respiratory distress or wheezes Cardiovascular Cardiovascular exam: Present normal rate and rhythm; Absent JVD GI/Abdominal GI/Abdominal exam: Present normal bowel sounds and soft; Absent organomegaly or tenderness Rectal Rectal exam: Present deferred Extremities Exam Extremities exam: Present full ROM, normal capillary refill and normal inspection; Absent tenderness Neurological Exam Neurological exam: Present alert, CN II-XII intact and oriented X3; Absent motor sensory deficit Psychiatric Psychiatric exam: Present normal affect and normal mood; Absent anxious or depressed Skin Skin exam: Present dry and intact Discharge Data Data Completed and Pending Labs on day of discharge: Labs from last 24 hours 06/24/22 06/24/22 05:10 05:10 WBC 4.3 L RBC 3.58 L Hgb 12.3 L Hct 37.4 L MCV 104.5 H MCH 34.4 H MCHC 32.9 RDW 12.7 Plt Count 51 L MPV 9.6 Immature Gran % (Auto) 0.2 Neut % (Auto) 51.8 Lymph % (Auto) 29.0 Ross % (Auto) 15.7 H Eos % (Auto) 2.8 Baso % (Auto) 0.5 Lymph # (Auto) 1.24 L Ross # (Auto) 0.67 Eos # (Auto) 0.12 Baso # (Auto) 0.02 Immature Gran # 0.01 Absolute Neutrophils 2.21 Sodium 134 Potassium 3.6 Chloride 102 Carbon Dioxide 19 L Anion Gap 13.0 BUN 8 Creatinine 0.8 GFR Calculation 111 Glucose 73 Calcium 8.3 L Total Bilirubin 1.7 H AST 103 H ALT 35 Alkaline Phosphatase 72 Total Protein 6.9 Albumin 3.8 Globulin 3.1 Albumin/Globulin Ratio 1.2 Discharge Plan Patient/Caregiver Discharge Instructions Instructions: Lorazepam (By mouth), Acute Delirium (DC), Alcohol Withdrawal (DC), Anxiety (DC) Prescriptions: New folic acid 1 mg Tablet 1 mg PO DAILY 30 Days Qty: 30 0RF lorazepam 1 mg Tablet 0 mg PO Q6H PRN (Reason: Alcohol Withdrawal/Assess Ciwa) Qty: 20 0RF Thera M Plus (ferrous fumarat) 9 mg iron-400 mcg Tablet 1 tab PO DAILY 30 Days Qty: 30 0RF thiamine mononitrate (vit B1) 100 mg Tablet 100 mg PO QDAY 30 Days Qty: 30 0RF Other Ambulatory Orders: Primary Care Provider - Referral (NOW) Timeframe: [id number] Location: None Selected Ordered By: Mika Redmond Follow Up Plan Follow up with: PCP, PCP [Other] No,PCP [Primary Care Provider] - Patient Disposition: Home, Self-Care Rehab Potential: Good I certify that the patient requires SNF services: No Overall status at discharge: patient is back to baseline Discharge Orders: Discharge Order (Routine); Ordered 06/24/22 Ordered By: Chavez Mariee
== END 2022-06-24 12:30 | disposition home or self-care (01) | DRG 897 ==
LOC: ED 08:39 → ICU 17:00
PROVIDERS: ADMIT Internal Medicine; ATTEND Internal Medicine

== ENCOUNTER 2023-01-08 12:05 | Inpatient (IN) ==
[2023-01-08] MEDS ORDERED: IOPAMIDOL 100 ML BOTTLE IV ONE (12:06)
[2023-01-08 12:26] LABS: POC Blood Urea Nitrogen < 3 (6-20); POC Calcium, Ionized 0.95 (1.16-1.32); POC Chloride 97 (96-108); POC Creatinine 0.6 (0.6-1.2); POC Glucose, Random 98 (70-105); POC Potassium 3.4 (3.3-5.1); POC Sodium 133 (133-145)
[2023-01-08] MEDS ORDERED: ONDANSETRON 4 MG/2 ML VIAL IV PRN ×2 (12:33→17:39)
[2023-01-08] MEDS ORDERED: LORazepam 2 MG/ML VIAL IV PRN (12:35)
[2023-01-08] MEDS ORDERED: 0.9 % SODIUM CHLORIDE 1,000 ML IV ONE ×2 (12:41→13:51)
--- NOTE | 2023-01-08 12:41 | Emergency Department Note ---
Alcohol HPI General Chief Complaint: Alcohol Stated Complaint: detox Time Seen by Provider: 01/08/23 12:31 Source: patient Mode of arrival: ambulatory Limitations: no limitations History of Present Illness HPI Narrative: Narrative:This is a 42 y/o male who presents for alcohol withdrawal. His last drink was on Sunday. He states that he tried to take a sip of alcohol yesterday but all he wanted to do was vomit. He states that he drinks somewhere between 6-10 beers a day. He states that this was a cut back from when he went thru withdrawal. He states that he hasn't had seizures with withdrawal but has gone thru DT's. He denies having hallucinations at this time. He complains about nausea and having the shakes. He has vomited once too. Denies diarrhea. He states that he wants to quit drinking. RUQ pain as well. Related Data Home Medications Medication Instructions Recorded Confirmed No Known Home Meds 01/08/23 01/08/23 Allergies Allergy/AdvReac Type Severity Reaction Status Date / Time No Known Drug Allergies Allergy Verified 01/08/23 18:28 Review of Systems ROS ROS Narrative: Narrative: All systems ED: reviewed and negative except as stated. PFSH Narrative Patient History Narrative: Narrative: Medical/Surgical/Family History All Active Problems (Updated 01/15/23 @ 10:53 by Korina Wallace PA-C) Alcohol withdrawal (Acute) Delirium tremens (Acute) Hypokalemia (Acute) Thrombocytopenia (Acute) Anemia, normocytic normochromic (Acute) Coagulopathy (Acute) Transaminitis (Acute) Alcoholic hepatitis without ascites (Acute) Alcohol withdrawal with delirium (Acute) Social History Smoking Status: Former smoker Exam Narrative Narrative: Narrative: General Limitations: no limitations General appearance: Present alert, in no apparent distress and nontoxic Head Head: Present atraumatic and normocephalic Eye Eye: Present normal appearance, PERRL and EOMI; Absent scleral icterus or conjunctival injection Chest Chest: Present symmetric chest wall rise Respiratory Respiratory: Absent respiratory distress Cardiovascular Cardiovascular: Present normal rhythm, tachycardia and normal heart sounds Adbominal Abdominal: Present soft and tenderness (RUQ); Absent distention, guarding, rebound or rigidity Extremities Extremities: Present normal inspection and full ROM Neurological Neurological: Present alert, oriented X3 and other (tongue trembling) Psychiatric Psychiatric: Present normal affect, normal mood and pleasant Course Vital Signs Vital signs: Vital Signs Temperature 98.5 F 01/08/23 12:07 Pulse Rate 130 H 01/08/23 12:07 Respiratory Rate 20 01/08/23 12:07 Blood Pressure 139/82 01/08/23 12:07 Pulse Oximetry (%) 100 01/08/23 12:07 Oxygen Delivery Method Room Air 01/08/23 12:07 Temperature 98.2 F 01/11/23 11:35 Pulse Rate 104 H 01/11/23 11:35 Respiratory Rate 17 01/11/23 11:35 Blood Pressure 123/76 01/11/23 11:35 Pulse Oximetry (%) 95 01/11/23 11:35 Oxygen Delivery Method Room Air 01/11/23 11:35 Oxygen Flow Rate (L/min) 2 01/10/23 00:00 [facility] Narrative Medical decision making narrative: Narrative:This is a 42 y/o male who presents for alcohol withdrawal. IV access was established for administration of fluids and medications. Labs revealed a decreased WBC, RBC, Hgb/Hct. Platelet count was 41 which is severly low. His PT/INR is elevated. Anion gap was elevated. His alcohol level is 52. Phosphorus was decreased and his lactate was elevated to 3.2 with a ph of 7.52. His liver enzymes were elevated as well except his alk phos. With his RUQ pain, CT abd/pelvis revealed cirrhosis, varcies, mildly enlarged spleen, mesenteric edema and sigmoid diverticulosis without diverticulitis. The patient's original CIWA score was 29. He was given 2 L of NS, zofran, ativan and vitamin B1. I discussed the patient with Dr. Rothman who agreed to admit the patient for alcohol withdrawal. At the time of admission, he was stable for his assigned floor/service. They have accepted the patient to their service based on a review of the medical workup, vitals, history and physical. They feel comfortable with this patient on this service. Occasionally, a patient's clinical status may worsen in the emergency department or on the floor from their pathology which requires further workup or a higher level of care. Sepsis Sepsis Identified: No Differential Diagnosis Differential Diagnosis: Delirium Tremons, alcohol withdrawal, alcoholic hepatitis, alcoholic gastri Medical Records Medical records reviewed: Yes I reviewed the patient's medical records. Medical records narrative: Last admit for alcohol withdrawal, pt suffered from DT's. Lab Data Lab results reviewed: Yes I reviewed the patient's lab results. 01/10/23 05:33 01/10/23 05:33 Labs: Lab Results 01/08/23 01/08/23 01/08/23 Range/Units 12:23 12:30 12:30 WBC 4.2 L (4.5-11.0) K/mcL RBC 3.92 L (4.63-6.08) M/mcL Hgb 13.3 L (13.7-17.5) g/dL Hct 38.0 L (40.1-51.0) % POC Hct 40.0 L (41-55) MCV 96.9 (80.0-100.0) fL MCH 33.9 (26.0-34.0) pg MCHC 35.0 (31.0-36.0) g/dL RDW 13.5 (11.5-14.5) % Plt Count 41 L* (140-440) K/mcL MPV 9.6 (8.8-12.5) fL Immature Gran % (Auto) 0.2 (0.0-0.5) % Neut % (Auto) 57.4 (38.0-78.0) % Lymph % (Auto) 30.1 (15.5-49.0) % [place] % (Auto) 11.4 (1.0-12.0) % Eos % (Auto) 0.7 (0.0-7.0) % Baso % (Auto) 0.2 (0.0-2.0) % Lymph # (Auto) 1.27 L (1.50-4.80) K/mcL [place] # (Auto) 0.48 (0.10-0.90) K/mcL Eos # (Auto) 0.03 (0.00-0.70) K/mcL Baso # (Auto) 0.01 (0.00-0.30) K/mcL Immature Gran # 0.01 (0.00-0.05) K/mcl Absolute Neutrophils 2.42 (1.80-8.00) K/mcL PT (11.9-14.5) sec INR (0.9-1.1) POC VBG pH (7.32-7.42) POC VBG pCO2 at Temp (41-51) POC VBG pO2 (25-40) POC VBG HCO3 (24-28) POC VBG Total CO2 (25-29) POC Venous O2 Sat (40-70) POC VBG Base Excess (-2-2) VBG Lactic Acid (0.5-2) POC Sodium 133 (133-145) POC Potassium 3.4 (3.3-5.1) POC Chloride 97 (96-108) POC Total CO2 21.0 L (22-30) POC Anion Gap 19.0 H (8.0-16.0) POC BUN < 3 L (6-20) POC Creatinine 0.6 (0.6-1.2) POC Glucose 98 (70-105) POC WB Ioniz Calcium 0.95 L (1.16-1.32) Phosphorus (2.5-4.5) mg/dL Magnesium (1.6-2.5) mg/dL Total Bilirubin (0.1-1.0) mg/dL Direct Bilirubin (<0.3) mg/dL AST (<40) U/L ALT (<40) U/L Alkaline Phosphatase (39-117) U/L Total Protein (5.9-8.4) gm/dL Albumin (3.2-5.2) gm/dL Globulin (2.2-3.7) gm/dL Lipase (7-60) U/L Urine Opiates Screen Ur Opiates Confirm Ur Oxycodone Screen U Oxycod/Oxymor Confirm Urine Methadone Screen Ur Methadone Confirm Ur Barbiturates Screen Ur Barbiturate Confirm Ur Phencyclidine Scrn Urine PCP Confirm Ur Amphetamines Screen U Amphetamines Confirm U Benzodiazepines Scrn Ur Benzodiazepine, Qnt Urine Cocaine Screen Urine Cocaine Confirm U Cannabinoids Confirm U Marijuana (THC) Screen Ethyl Alcohol mg/dL 52.0 mg/dL Ethyl Alcohol g/dL 0.052 H (<0.010) gm/dL POC Troponin I (0.00-0.08) 01/08/23 01/08/23 01/08/23 Range/Units 12:30 12:30 12:30 WBC (4.5-11.0) K/mcL RBC (4.63-6.08) M/mcL Hgb (13.7-17.5) g/dL Hct (40.1-51.0) % POC Hct (41-55) MCV (80.0-100.0) fL MCH (26.0-34.0) pg MCHC (31.0-36.0) g/dL RDW (11.5-14.5) % Plt Count (140-440) K/mcL MPV (8.8-12.5) fL Immature Gran % (Auto) (0.0-0.5) % Neut % (Auto) (38.0-78.0) % Lymph % (Auto) (15.5-49.0) % [place] % (Auto) (1.0-12.0) % Eos % (Auto) (0.0-7.0) % Baso % (Auto) (0.0-2.0) % Lymph # (Auto) (1.50-4.80) K/mcL [place] # (Auto) (0.10-0.90) K/mcL Eos # (Auto) (0.00-0.70) K/mcL Baso # (Auto) (0.00-0.30) K/mcL Immature Gran # (0.00-0.05) K/mcl Absolute Neutrophils (1.80-8.00) K/mcL PT 18.1 H (11.9-14.5) sec INR 1.4 H (0.9-1.1) POC VBG pH (7.32-7.42) POC VBG pCO2 at Temp (41-51) POC VBG pO2 (25-40) POC VBG HCO3 (24-28) POC VBG Total CO2 (25-29) POC Venous O2 Sat (40-70) POC VBG Base Excess (-2-2) VBG Lactic Acid (0.5-2) POC Sodium (133-145) POC Potassium (3.3-5.1) POC Chloride (96-108) POC Total CO2 (22-30) POC Anion Gap (8.0-16.0) POC BUN (6-20) POC Creatinine (0.6-1.2) POC Glucose (70-105) POC WB Ioniz Calcium (1.16-1.32) Phosphorus (2.5-4.5) mg/dL Magnesium 1.6 (1.6-2.5) mg/dL Total Bilirubin 4.6 H (0.1-1.0) mg/dL Direct Bilirubin 1.4 H (<0.3) mg/dL AST 326 H (<40) U/L ALT 81 H (<40) U/L Alkaline Phosphatase 103 (39-117) U/L Total Protein 8.1 (5.9-8.4) gm/dL Albumin 4.4 (3.2-5.2) gm/dL Globulin 3.7 (2.2-3.7) gm/dL Lipase 38 (7-60) U/L Urine Opiates Screen Ur Opiates Confirm Ur Oxycodone Screen U Oxycod/Oxymor Confirm Urine Methadone Screen Ur Methadone Confirm Ur Barbiturates Screen Ur Barbiturate Confirm Ur Phencyclidine Scrn Urine PCP Confirm Ur Amphetamines Screen U Amphetamines Confirm U Benzodiazepines Scrn Ur Benzodiazepine, Qnt Urine Cocaine Screen Urine Cocaine Confirm U Cannabinoids Confirm U Marijuana (THC) Screen Ethyl Alcohol mg/dL mg/dL Ethyl Alcohol g/dL (<0.010) gm/dL POC Troponin I (0.00-0.08) 01/08/23 01/08/23 01/08/23 Range/Units 12:30 12:57 12:59 WBC (4.5-11.0) K/mcL RBC (4.63-6.08) M/mcL Hgb (13.7-17.5) g/dL Hct (40.1-51.0) % POC Hct (41-55) MCV (80.0-100.0) fL MCH (26.0-34.0) pg MCHC (31.0-36.0) g/dL RDW (11.5-14.5) % Plt Count (140-440) K/mcL MPV (8.8-12.5) fL Immature Gran % (Auto) (0.0-0.5) % Neut % (Auto) (38.0-78.0) % Lymph % (Auto) (15.5-49.0) % [place] % (Auto) (1.0-12.0) % Eos % (Auto) (0.0-7.0) % Baso % (Auto) (0.0-2.0) % Lymph # (Auto) (1.50-4.80) K/mcL [place] # (Auto) (0.10-0.90) K/mcL Eos # (Auto) (0.00-0.70) K/mcL Baso # (Auto) (0.00-0.30) K/mcL Immature Gran # (0.00-0.05) K/mcl Absolute Neutrophils (1.80-8.00) K/mcL PT (11.9-14.5) sec INR (0.9-1.1) POC VBG pH 7.52 H (7.32-7.42) POC VBG pCO2 at Temp 22.9 L (41-51) POC VBG pO2 53 H (25-40) POC VBG HCO3 18.8 L (24-28) POC VBG Total CO2 19.0 L (25-29) POC Venous O2 Sat 91.0 H (40-70) POC VBG Base Excess -4.0 L (-2-2) VBG Lactic Acid 3.2 H (0.5-2) POC Sodium (133-145) POC Potassium (3.3-5.1) POC Chloride (96-108) POC Total CO2 (22-30) POC Anion Gap (8.0-16.0) POC BUN (6-20) POC Creatinine (0.6-1.2) POC Glucose (70-105) POC WB Ioniz Calcium (1.16-1.32) Phosphorus 2.1 L (2.5-4.5) mg/dL Magnesium (1.6-2.5) mg/dL Total Bilirubin (0.1-1.0) mg/dL Direct Bilirubin (<0.3) mg/dL AST (<40) U/L ALT (<40) U/L Alkaline Phosphatase (39-117) U/L Total Protein (5.9-8.4) gm/dL Albumin (3.2-5.2) gm/dL Globulin (2.2-3.7) gm/dL Lipase (7-60) U/L Urine Opiates Screen Ur Opiates Confirm Ur Oxycodone Screen U Oxycod/Oxymor Confirm Urine Methadone Screen Ur Methadone Confirm Ur Barbiturates Screen Ur Barbiturate Confirm Ur Phencyclidine Scrn Urine PCP Confirm Ur Amphetamines Screen U Amphetamines Confirm U Benzodiazepines Scrn Ur Benzodiazepine, Qnt Urine Cocaine Screen Urine Cocaine Confirm U Cannabinoids Confirm U Marijuana (THC) Screen Ethyl Alcohol mg/dL mg/dL Ethyl Alcohol g/dL (<0.010) gm/dL POC Troponin I < 0.02 (0.00-0.08) 01/08/23 Range/Units 15:28 WBC (4.5-11.0) K/mcL RBC (4.63-6.08) M/mcL Hgb (13.7-17.5) g/dL Hct (40.1-51.0) % POC Hct (41-55) MCV (80.0-100.0) fL MCH (26.0-34.0) pg MCHC (31.0-36.0) g/dL RDW (11.5-14.5) % Plt Count (140-440) K/mcL MPV (8.8-12.5) fL Immature Gran % (Auto) (0.0-0.5) % Neut % (Auto) (38.0-78.0) % Lymph % (Auto) (15.5-49.0) % [place] % (Auto) (1.0-12.0) % Eos % (Auto) (0.0-7.0) % Baso % (Auto) (0.0-2.0) % Lymph # (Auto) (1.50-4.80) K/mcL [place] # (Auto) (0.10-0.90) K/mcL Eos # (Auto) (0.00-0.70) K/mcL Baso # (Auto) (0.00-0.30) K/mcL Immature Gran # (0.00-0.05) K/mcl Absolute Neutrophils (1.80-8.00) K/mcL PT (11.9-14.5) sec INR (0.9-1.1) POC VBG pH (7.32-7.42) POC VBG pCO2 at Temp (41-51) POC VBG pO2 (25-40) POC VBG HCO3 (24-28) POC VBG Total CO2 (25-29) POC Venous O2 Sat (40-70) POC VBG Base Excess (-2-2) VBG Lactic Acid (0.5-2) POC Sodium (133-145) POC Potassium (3.3-5.1) POC Chloride (96-108) POC Total CO2 (22-30) POC Anion Gap (8.0-16.0) POC BUN (6-20) POC Creatinine (0.6-1.2) POC Glucose (70-105) POC WB Ioniz Calcium (1.16-1.32) Phosphorus (2.5-4.5) mg/dL Magnesium (1.6-2.5) mg/dL Total Bilirubin (0.1-1.0) mg/dL Direct Bilirubin (<0.3) mg/dL AST (<40) U/L ALT (<40) U/L Alkaline Phosphatase (39-117) U/L Total Protein (5.9-8.4) gm/dL Albumin (3.2-5.2) gm/dL Globulin (2.2-3.7) gm/dL Lipase (7-60) U/L Urine Opiates Screen None detected Ur Opiates Confirm TNP Ur Oxycodone Screen None detected U Oxycod/Oxymor Confirm TNP Urine Methadone Screen None detected Ur Methadone Confirm TNP Ur Barbiturates Screen None detected Ur Barbiturate Confirm TNP Ur Phencyclidine Scrn None detected Urine PCP Confirm TNP Ur Amphetamines Screen None detected U Amphetamines Confirm TNP U Benzodiazepines Scrn None detected Ur Benzodiazepine, Qnt TNP Urine Cocaine Screen None detected Urine Cocaine Confirm TNP U Cannabinoids Confirm TNP U Marijuana (THC) Screen None detected Ethyl Alcohol mg/dL mg/dL Ethyl Alcohol g/dL (<0.010) gm/dL POC Troponin I (0.00-0.08) Radiology Data Radiology results reviewed: Yes I reviewed the patient's radiology results. Radiology results narrative: [facility] NAME: Kalin Cosby [address] [place] [address] : 1980 [address] Service Date: 01/08/23 Report # [id number] [place] [id number] Ryan Ellison M.D. MR #: [id number] Cat Scan Report Signed Ordering Physician:Korina Wallace PA-C Date of Service:01/08/23 Procedure(s):CT abdomen pelvis w con CLINICAL INFORMATION: Epigastric and left upper quadrant pain COMPARISON: None. TECHNIQUE: Following enteric contrast, 80 cc of Isovue-370 were injected intravenously, and 60 seconds later, 0.625 mm helical slices were obtained from the mid heart through the subtrochanteric regions. Following reconstruction, 2.5 mm sagittal, coronal and axial reformatted images were processed and reviewed at bone, lung and soft tissue windows. Five minutes later, 0.625 mm helical slices were obtained from the mid heart through the kidneys and viewed at soft tissue windows.The exam was performed using radiation dose optimization techniques including, but not limited to, automated exposure control, adjustment of the mA and/or kV according to patient size and use of iterative reconstruction technique. FINDINGS: The lung bases are clear. No effusions. The visualized heart is grossly normal. Abdominal images show the liver liver overall is normal size but shows inhomogeneous fatty attenuation cortical irregularity and mild asymmetric enlargement of the lateral segment left hepatic lobe and caudate lobes all compatible with cirrhosis. Portosystemic shunt is seen between the left portal vein which drains into a recanalized umbilical vein which then drains into the epigastric veins. There is also a portosystemic shunt between a branch of the SMV and the and the right renal vein effectively a spontaneous spleno renal shunt. Spleen is mildly enlarged. There are multiple varices in the paragastric perisplenic region. Both kidneys, adrenal glands, spleen, pancreas and aorta are normal in size, configuration and attenuation without focal lesion. There is no ascites, however there is mild mesenteric edema. No free air or adenopathy. Pelvic images show prostate, seminal vesicles and urinary bladder are normal. Multiple sigmoid diverticuli appreciated, but no evidence of diverticulitis. The remaining large bowel, appendix region, small bowel and stomach are normal. Bone windows show no osseous abnormality. IMPRESSION: Moderate cirrhosis with spontaneous portosystemic shunts between a branch of the superior mesenteric vein and the right renal vein and also between the left portal vein to a recanalized periumbilical vein which then drains into the inferior epigastric veins. Varices are seen in the perigastric and perisplenic regions. Spleen is mildly enlarged. No ascites however, there is mild mesenteric edema appreciated Sigmoid diverticulosis. Interpreted and Authenticated by: Ryan Ellison 01/08/23 [id number] Patient Service Specialist: <Electronically signed by Ryan Ellison M.D. in [place]> 01/08/23 [id number] CC: Korina Wallace PA-C; Ryan Ellison M.D.; No,PCP ~ EKG Data EKG #1: EKG attestation: Yes I reviewed and interpreted this EKG. EKG results narrative: with Dr. Redmond EKG shows normal: sinus rhythm Rate: tachycardia [place]/QRS: normal QTc: prolonged When compared to previous EKG there are: changes noted (QTc prolongation) Interpretation: no acute changes Pulse Oximetry Data Pulse Ox %: 95 Interpretation: O2 sat is 95% on RA with no signs of hypoxia Discharge Plan Patient/Caregiver Discharge Instructions Pt seen by DEFENSIVE LINE COACH/PA only: Yes Clinical Impression: Alcohol withdrawal Activity: increase activity as tolerated Patient Disposition: Xfer As Inpt (TS) Condition: Undetermined Discharge Date/Time: 01/08/23 17:29
--- NOTE | 2023-01-08 13:23 | Cat Scan Report ---
CLINICAL INFORMATION: Epigastric and left upper quadrant pain COMPARISON: None. TECHNIQUE: Following enteric contrast, 80 cc of Isovue-370 were injected intravenously, and 60 seconds later, 0.625 mm helical slices were obtained from the mid heart through the subtrochanteric regions. Following reconstruction, 2.5 mm sagittal, coronal and axial reformatted images were processed and reviewed at bone, lung and soft tissue windows. Five minutes later, 0.625 mm helical slices were obtained from the mid heart through the kidneys and viewed at soft tissue windows.The exam was performed using radiation dose optimization techniques including, but not limited to, automated exposure control, adjustment of the mA and/or kV according to patient size and use of iterative reconstruction technique. FINDINGS: The lung bases are clear. No effusions. The visualized heart is grossly normal. Abdominal images show the liver liver overall is normal size but shows inhomogeneous fatty attenuation cortical irregularity and mild asymmetric enlargement of the lateral segment left hepatic lobe and caudate lobes all compatible with cirrhosis. Portosystemic shunt is seen between the left portal vein which drains into a recanalized umbilical vein which then drains into the epigastric veins. There is also a portosystemic shunt between a branch of the SMV and the and the right renal vein effectively a spontaneous spleno renal shunt. Spleen is mildly enlarged. There are multiple varices in the paragastric perisplenic region. Both kidneys, adrenal glands, spleen, pancreas and aorta are normal in size, configuration and attenuation without focal lesion. There is no ascites, however there is mild mesenteric edema. No free air or adenopathy. Pelvic images show prostate, seminal vesicles and urinary bladder are normal. Multiple sigmoid diverticuli appreciated, but no evidence of diverticulitis. The remaining large bowel, appendix region, small bowel and stomach are normal. Bone windows show no osseous abnormality. IMPRESSION: Moderate cirrhosis with spontaneous portosystemic shunts between a branch of the superior mesenteric vein and the right renal vein and also between the left portal vein to a recanalized periumbilical vein which then drains into the inferior epigastric veins. Varices are seen in the perigastric and perisplenic regions. Spleen is mildly enlarged. No ascites however, there is mild mesenteric edema appreciated Sigmoid diverticulosis. Interpreted and Authenticated by: Ryan Ellison 01/08/23
[2023-01-08 13:49] LABS: Basophils # (Auto) 0.01 K/mcL (0.00-0.30); Basophils % (Auto) 0.2 % (0.0-2.0); Eosinophils # (Auto) 0.03 K/mcL (0.00-0.70); Eosinophils % (Auto) 0.7 % (0.0-7.0); Hemoglobin 13.3 g/dL (13.7-17.5); Lymphocytes # (Auto) 1.27 K/mcL (1.50-4.80); Lymphocytes % (Auto) 30.1 % (15.5-49.0); Mean Cell Volume 96.9 fL (80.0-100.0); Mean Platelet Volume 9.6 fL (8.8-12.5); Monocytes # (Auto) 0.48 K/mcL (0.10-0.90); Monocytes % (Auto) 11.4 % (1.0-12.0); Neutrophils % (Auto) 57.4 % (38.0-78.0); Platelet Count 41 K/mcL (140-440); RBC 3.92 M/mcL (4.63-6.08); Red Cell Distribution Width 13.5 % (11.5-14.5); WBC 4.2 K/mcL (4.5-11.0)
[2023-01-08 14:00] LABS: Alcohol,Blood 0.052 gm/dL (<0.010)
[2023-01-08 14:07] LABS: ALT/SGPT 81 U/L (<40); AST/SGOT 326 U/L (<40); Albumin 4.4 gm/dL (3.2-5.2); Alkaline Phosphatase 103 U/L (39-117); Bilirubin,Direct 1.4 mg/dL (<0.3); Bilirubin,Total 4.6 mg/dL (0.1-1.0); Globulin 3.7 gm/dL (2.2-3.7)
[2023-01-08 14:17] LABS: INR 1.4 (0.9-1.1); Prothrombin Time 18.1 sec (11.9-14.5)
[2023-01-08 16:24] LABS: Amphetamine Screen,Urine None detected; Barbiturate Screen,Urine None detected; Benzodiazepines Screen,Urine None detected; Cannabinoid Screen,Urine None detected; Cocaine Screen,Urine None detected; Opiate Screen,Urine None detected; Oxycodone, Urine Screen None detected; Phencyclidine Screen,Urine None detected
[2023-01-08] MEDS ORDERED: THIAMINE 100 MG in 0.9 % SODIUM CHLORIDE 50 ML IV ONE (16:26)
--- NOTE | 2023-01-08 16:49 | Internal Med History&Physical ---
HPI History of Present Illness Patient information: Note initiated : 01/08/23 at 4:37 pm Service Date, if different from initiated Date: [] Patient: Kalin Cosby a 42 y/o M admitted on for detox. Chief Complaint: [] History of present illness: Mr. Cosby is a 42 year old M Presents the ED with alcohol withdrawal symptoms. Patient wanted to detox off alcohol and was attempting to do this at home, weaning down his alcohol intake. Patient states he typically drinks 8-10 beers a day, no liquor. Started tapering down end of last week. Sunday he says he started having visual and auditory hallucinations tremors rapid breathing unstable on his feet rapid breathing at times. This continue to worsen until today where the symptoms became worse enough that he felt he needed to come into the ED. His last drink of alcohol was this morning. She denies any headache fever chills nausea or vomiting. Has some vague abdominal achy pain in the upper quadrants bilaterally but a CT abdomen pelvis was negative for acute pathology other than cirrhosis with spontaneous portosystemic shunts. No ascites. He was mildly tachypneic in the ED and tachycardic 110. He has a history of pancytopenia presumably from alcoholism and labs are similar to the past including a leukopenia anemia thrombocytopenia 41,000. INR 1.4. VBG shows a respiratory alkalosis with a pH of 7.5 and a CO2 of 23, including a lactate of 3.2. Magnesium was borderline low at 1.6. Phos pending. Total bilirubin is up to 4.6 mostly unconjugated. AST 326 with ALT of 81. Patient started on Ativan in the ED with some symptomatology improvement. Patient was here last May for alcohol withdrawal. Review of Systems: Pertinent positives as above. Denies headache/fever/chills/nausea/vomiting/chest pain/cough/dyspnea/diarrhea. Remaining 10 point review of system reviewed negative PHYSICAL EXAM General: Alert, Awake, No acute Distress, obese Eyes/N/T: EOMI, no scleral icterus, PERRL, dry MM Head/Neck: neck supple, full ROM, normocephalic atraumatic CV: Mildly tacky but regular, No murmurs, normal s1/s2 Pulm: Clear b/l, no wheezing/rhonchi/rales, no respiratory distress Abd: soft, nontender, +BS x4 Ext: no clubbing/cyanosis/edema, nontender Neuro: Alert, CN 2-12 grossly intact, no focal deficits, moves all extremities, , sensations intact b/l upper/lower, mild tremors Psychiatric: Skin: warm/dry, normal color PFSH PFSH All Active Problems (Updated 06/22/22 @ 08:50 by Chavez Mariee MD) Delirium tremens (Acute) Hypokalemia (Acute) Thrombocytopenia (Acute) Anemia, normocytic normochromic (Acute) Coagulopathy (Acute) Transaminitis (Acute) Alcoholic hepatitis without ascites (Acute) Alcohol withdrawal with delirium (Acute) Social History smoking status: Former smoker MEDS/ALLERGIES Home Medications and Allergies Home Medications Medication Instructions Recorded Confirmed Type lorazepam 1 mg tablet 0 mg PO Q6H PRN Alcohol 06/24/22 Rx Withdrawal/Assess Ciwa #20 tabs Allergies Allergy/AdvReac Type Severity Reaction Status Date / Time No Known Drug Allergies Allergy Verified 01/08/23 12:10 EXAM Constitutional Vitals: Temp Pulse Resp BP Pulse Ox O2 Del Method 98.5 F 104 H 27 H 124/67 91 Room Air 01/08/23 12:07 01/08/23 16:13 01/08/23 16:13 01/08/23 16:01 01/08/23 16:13 01/08/23 12:07 DATA Data Completed and Pending Labs: Labs from last 24 hours 01/08/23 01/08/23 01/08/23 15:28 12:59 12:57 WBC RBC Hgb Hct POC Hct MCV MCH MCHC RDW Plt Count MPV Immature Gran % (Auto) Neut % (Auto) Lymph % (Auto) [place] % (Auto) Eos % (Auto) Baso % (Auto) Lymph # (Auto) [place] # (Auto) Eos # (Auto) Baso # (Auto) Immature Gran # Absolute Neutrophils PT INR POC VBG pH 7.52 H POC VBG pCO2 at Temp 22.9 L POC VBG pO2 53 H POC VBG HCO3 18.8 L POC VBG Total CO2 19.0 L POC Venous O2 Sat 91.0 H POC VBG Base Excess -4.0 L VBG Lactic Acid 3.2 H POC Sodium POC Potassium POC Chloride POC Total CO2 POC Anion Gap POC BUN POC Creatinine POC Glucose POC WB Ioniz Calcium Phosphorus Magnesium Total Bilirubin Direct Bilirubin AST ALT Alkaline Phosphatase Total Protein Albumin Globulin Lipase Urine Opiates Screen None detected Ur Opiates Confirm TNP Ur Oxycodone Screen None detected U Oxycod/Oxymor Confirm TNP Urine Methadone Screen None detected Ur Methadone Confirm TNP Ur Barbiturates Screen None detected Ur Barbiturate Confirm TNP Ur Phencyclidine Scrn None detected Urine PCP Confirm TNP Ur Amphetamines Screen None detected U Amphetamines Confirm TNP U Benzodiazepines Scrn None detected Ur Benzodiazepine, Qnt TNP Urine Cocaine Screen None detected Urine Cocaine Confirm TNP U Cannabinoids Confirm TNP U Marijuana (THC) Screen None detected Ethyl Alcohol mg/dL Ethyl Alcohol g/dL POC Troponin I < 0.02 01/08/23 01/08/23 01/08/23 12:30 12:30 12:30 WBC RBC Hgb Hct POC Hct MCV MCH MCHC RDW Plt Count MPV Immature Gran % (Auto) Neut % (Auto) Lymph % (Auto) [place] % (Auto) Eos % (Auto) Baso % (Auto) Lymph # (Auto) [place] # (Auto) Eos # (Auto) Baso # (Auto) Immature Gran # Absolute Neutrophils PT 18.1 H INR 1.4 H POC VBG pH POC VBG pCO2 at Temp POC VBG pO2 POC VBG HCO3 POC VBG Total CO2 POC Venous O2 Sat POC VBG Base Excess VBG Lactic Acid POC Sodium POC Potassium POC Chloride POC Total CO2 POC Anion Gap POC BUN POC Creatinine POC Glucose POC WB Ioniz Calcium Phosphorus Pending Magnesium 1.6 Total Bilirubin Direct Bilirubin AST ALT Alkaline Phosphatase Total Protein Albumin Globulin Lipase Urine Opiates Screen Ur Opiates Confirm Ur Oxycodone Screen U Oxycod/Oxymor Confirm Urine Methadone Screen Ur Methadone Confirm Ur Barbiturates Screen Ur Barbiturate Confirm Ur Phencyclidine Scrn Urine PCP Confirm Ur Amphetamines Screen U Amphetamines Confirm U Benzodiazepines Scrn Ur Benzodiazepine, Qnt Urine Cocaine Screen Urine Cocaine Confirm U Cannabinoids Confirm U Marijuana (THC) Screen Ethyl Alcohol mg/dL Ethyl Alcohol g/dL POC Troponin I 01/08/23 01/08/23 01/08/23 12:30 12:30 12:30 WBC 4.2 L RBC 3.92 L Hgb 13.3 L Hct 38.0 L POC Hct MCV 96.9 MCH 33.9 MCHC 35.0 RDW 13.5 Plt Count 41 L* MPV 9.6 Immature Gran % (Auto) 0.2 Neut % (Auto) 57.4 Lymph % (Auto) 30.1 [place] % (Auto) 11.4 Eos % (Auto) 0.7 Baso % (Auto) 0.2 Lymph # (Auto) 1.27 L [place] # (Auto) 0.48 Eos # (Auto) 0.03 Baso # (Auto) 0.01 Immature Gran # 0.01 Absolute Neutrophils 2.42 PT INR POC VBG pH POC VBG pCO2 at Temp POC VBG pO2 POC VBG HCO3 POC VBG Total CO2 POC Venous O2 Sat POC VBG Base Excess VBG Lactic Acid POC Sodium POC Potassium POC Chloride POC Total CO2 POC Anion Gap POC BUN POC Creatinine POC Glucose POC WB Ioniz Calcium Phosphorus Magnesium Total Bilirubin 4.6 H Direct Bilirubin 1.4 H AST 326 H ALT 81 H Alkaline Phosphatase 103 Total Protein 8.1 Albumin 4.4 Globulin 3.7 Lipase 38 Urine Opiates Screen Ur Opiates Confirm Ur Oxycodone Screen U Oxycod/Oxymor Confirm Urine Methadone Screen Ur Methadone Confirm Ur Barbiturates Screen Ur Barbiturate Confirm Ur Phencyclidine Scrn Urine PCP Confirm Ur Amphetamines Screen U Amphetamines Confirm U Benzodiazepines Scrn Ur Benzodiazepine, Qnt Urine Cocaine Screen Urine Cocaine Confirm U Cannabinoids Confirm U Marijuana (THC) Screen Ethyl Alcohol mg/dL 52.0 Ethyl Alcohol g/dL 0.052 H POC Troponin I 01/08/23 12:23 WBC RBC Hgb Hct POC Hct 40.0 L MCV MCH MCHC RDW Plt Count MPV Immature Gran % (Auto) Neut % (Auto) Lymph % (Auto) [place] % (Auto) Eos % (Auto) Baso % (Auto) Lymph # (Auto) [place] # (Auto) Eos # (Auto) Baso # (Auto) Immature Gran # Absolute Neutrophils PT INR POC VBG pH POC VBG pCO2 at Temp POC VBG pO2 POC VBG HCO3 POC VBG Total CO2 POC Venous O2 Sat POC VBG Base Excess VBG Lactic Acid POC Sodium 133 POC Potassium 3.4 POC Chloride 97 POC Total CO2 21.0 L POC Anion Gap 19.0 H POC BUN < 3 L POC Creatinine 0.6 POC Glucose 98 POC WB Ioniz Calcium 0.95 L Phosphorus Magnesium Total Bilirubin Direct Bilirubin AST ALT Alkaline Phosphatase Total Protein Albumin Globulin Lipase Urine Opiates Screen Ur Opiates Confirm Ur Oxycodone Screen U Oxycod/Oxymor Confirm Urine Methadone Screen Ur Methadone Confirm Ur Barbiturates Screen Ur Barbiturate Confirm Ur Phencyclidine Scrn Urine PCP Confirm Ur Amphetamines Screen U Amphetamines Confirm U Benzodiazepines Scrn Ur Benzodiazepine, Qnt Urine Cocaine Screen Urine Cocaine Confirm U Cannabinoids Confirm U Marijuana (THC) Screen Ethyl Alcohol mg/dL Ethyl Alcohol g/dL POC Troponin I A/P Narrative A/P Narrative: A: *Alcohol withdrawal, severe: high risk for DT's (h/o) *Respiratory alkalosis: 2/2 above *Lactic acidosis: 2/2 above *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 Gibbs -pt/ot -ppx: SCD (hold chemical for plt<50k) Time Spent With Patient Time: Total time spent is greater than 50% in coordination of care (as documented) at patient's floor/unit and/or counseling patient: Critical Care Time: Yes Total Critical Care Time: 70
[2023-01-08 16:59] LABS: Phosphorous 2.1 mg/dL (2.5-4.5)
[2023-01-08] MEDS ORDERED: MAGNESIUM SULFATE 2 GM/50 ML BAG IV PRN (17:39)
[2023-01-08] MEDS ORDERED: HALOPERIDOL LACTATE 5 MG/ML VIAL IM PRN (17:39)
[2023-01-08] MEDS ORDERED: POLYETHYLENE GLYCOL 3350 17 GM PACKET PO PRN (17:39)
[2023-01-08] MEDS ORDERED: POTASSIUM CHLORIDE 40 MEQ in DEXTROSE 5% IN WATER 500 ML IV PRN (17:39)
[2023-01-08] MEDS ORDERED: POTASSIUM CHLORIDE 20 MEQ TABLET PO PRN ×2 (17:39)
[2023-01-08] MEDS ORDERED: SENNOSIDES 1 TABLET PO PRN (17:39)
[2023-01-08] MEDS ORDERED: IPRATROPIUM/ALBUTEROL 3 ML AMPUL.NEB NEB PRN (17:39)
[2023-01-08] MEDS ORDERED: 0.9 % SODIUM CHLORIDE 1,000 ML IV SCH (17:39)
[2023-01-08] MEDS: DOCUSATE SODIUM 100 MG CAPSULE PO SCH (21:11)
[2023-01-08] MEDS: 0.9 % SODIUM CHLORIDE 10 ML SYRINGE IV SCH (21:11)
[2023-01-08] MEDS: LORazepam 2 MG/ML VIAL IV PRN (21:11)
[2023-01-09] MEDS: chlordiazePOXIDE 25 MG CAPSULE PO PRN ×4 (00:30→17:53)
[2023-01-09] MEDS: 0.9 % SODIUM CHLORIDE 10 ML SYRINGE IV SCH ×4 (06:01→21:29)
[2023-01-09 06:50] LABS: INR 1.5 (0.9-1.1); Prothrombin Time 18.4 sec (11.9-14.5)
[2023-01-09 06:58] LABS: Basophils # (Auto) 0.02 K/mcL (0.00-0.30); Basophils % (Auto) 0.8 % (0.0-2.0); Eosinophils # (Auto) 0.08 K/mcL (0.00-0.70); Eosinophils % (Auto) 3.2 % (0.0-7.0); Hematocrit 32.1 % (40.1-51.0); Hemoglobin 10.7 g/dL (13.7-17.5); Lymphocytes # (Auto) 0.71 K/mcL (1.50-4.80); Lymphocytes % (Auto) 28.7 % (15.5-49.0); Mean Cell Volume 101.3 fL (80.0-100.0); Mean Corpuscular HGB Conc 33.3 g/dL (31.0-36.0); Mean Platelet Volume 10.6 fL (8.8-12.5); Monocytes # (Auto) 0.46 K/mcL (0.10-0.90); Monocytes % (Auto) 18.6 % (1.0-12.0); Neutrophils % (Auto) 48.3 % (38.0-78.0); Platelet Count 33 K/mcL (140-440); RBC 3.17 M/mcL (4.63-6.08); Red Cell Distribution Width 13.5 % (11.5-14.5); WBC 2.5 K/mcL (4.5-11.0)
[2023-01-09 07:03] LABS: ALT/SGPT 53 U/L (<40); AST/SGOT 222 U/L (<40); Albumin 3.5 gm/dL (3.2-5.2); Albumin/Globulin Ratio 1.2 (1.0-2.3); Alkaline Phosphatase 80 U/L (39-117); Bilirubin,Direct 1.3 mg/dL (<0.3); Blood Urea Nitrogen 4 mg/dL (6-20); Calcium 7.8 mg/dL (8.6-10.4); Carbon Dioxide 24 mmol/L (22-30); Chloride 100 mmol/L (96-108); Glomerular Filtration Rate 124; Glucose 88 mg/dL (70-105); Lactate Dehydrogenase 259 U/L (135-225); Phosphorous 2.2 mg/dL (2.5-4.5); Triglycerides 238 mg/dL (<150); Uric Acid 5.7 mg/dL (2.5-8.0)
--- NOTE | 2023-01-09 08:05 | Internal Med Progress Note ---
SUBJECTIVE Subjective Patient information: Note initiated : 01/09/23 at 7:59 am Service Date, if different from initiated Date: [] Patient: Kalin Cosby a 42 y/o M admitted on 01/08/23 for detox. Chief Complaint: [] Interval history: History of present illness: Mr. Cosby is a 42 year old M Presents the ED with alcohol withdrawal symptoms. Patient wanted to detox off alcohol and was attempting to do this at home, weaning down his alcohol intake. Patient states he typically drinks 8-10 beers a day, no liquor. Started tapering down end of last week. Sunday he says he started having visual and auditory hallucinations tremors rapid breathing unstable on his feet rapid breathing at times. This continue to worsen until today where the symptoms became worse enough that he felt he needed to come into the ED. His last drink of alcohol was this morning. She denies any headache fever chills nausea or vomiting. Has some vague abdominal achy pain in the upper quadrants bilaterally but a CT abdomen pelvis was negative for acute pathology other than cirrhosis with spontaneous portosystemic shunts. No ascites. He was mildly tachypneic in the ED and tachycardic 110. He has a history of pancytopenia presumably from alcoholism and labs are similar to the past including a leukopenia anemia thrombocytopenia 41,000. INR 1.4. VBG shows a respiratory alkalosis with a pH of 7.5 and a CO2 of 23, including a lactate of 3.2. Magnesium was borderline low at 1.6. Phos pending. Total bilirubin is up to 4.6 mostly unconjugated. AST 326 with ALT of 81. Patient started on Ativan in the ED with some symptomatology improvement. Patient was here last May for alcohol withdrawal. 01/09 Mediocre sleep last night. Elevated CIWA scores. Getting as needed Ativan and Librium. Appears relatively comfortable this morning does have some tremors still. Pancytopenia slightly worse than yesterday. Elevated bilirubin slightly improved. Transaminitis. B12 and folate levels okay. Patient feels groggy. Says he has a little bit of diarrhea which is common for him Review of Systems: Pertinent positives as above. Denies headache/fe lashay/chills/nausea/vomiting/chest pain/cough/dyspnea. PHYSICAL EXAM General: Alert, Awake, No acute Distress, obese Eyes/N/T: EOMI, no scleral icterus, Head/Neck: neck supple, full ROM, CV: Mildly tacky but regular, No murmurs, Pulm: Clear b/l, no wheezing/rhonchi/rales, no respiratory distress Abd: soft, nontender, +BS x4 Ext: no clubbing/cyanosis/edema, nontender Neuro: Alert, no focal deficits, moves all extremities, , sensations intact b/l upper/lower, mild tremors Psychiatric: Skin: warm/dry, normal color Constitutional Vitals: Vital Signs Temp Pulse Resp BP Pulse Ox O2 Del Method O2 Flow Rate 98.4 F 91 H 28 H 114/75 93 Room Air 2 01/09/23 04:00 01/09/23 06:01 01/09/23 06:01 01/09/23 06:01 01/09/23 06:01 01/09/23 06:01 01/09/23 04:00 Period Temp Pulse Resp BP Sys/Rosen Pulse Ox O2 Del Method O2 Flow Rate Last 24 Hr 97.1 F-98.8 F 75-130 12-30 89-153/65-127 88-100 Nasal Cannula- Room Air 0-2 Intake and Output 01/08/23 01/09/23 01/09/23 19:59 03:59 11:59 Intake Total 2050 1170 Output Total 400 Balance 1651 1170 Weight 93.395 kg 97.522 kg Intake & Output: Intake & Output 01/08/23 01/09/23 01/09/23 19:59 03:59 11:59 Intake Total 2050 1170 Output Total 400 Balance 1651 1170 Weight 93.395 kg 97.522 kg Intake: IV 2050 1050 Sodium Chloride 0.9% 1,000 ml @ 2000 1000 100 mls/hr IV .Q10H NELIDA Rx#: [id number] Vitamin B1 100 mg In Sodium 51 Chloride 0.9% 50 ml @ 50 mls/hr IV ONCE ONE Rx#:[id number] Oral 120 Output: Void Amount 300 Stool 100 Other: Meal Dinner Percent of Meal Consumed 50% Nourishment/Supplement name apple juice Urine Appearance Clear Urine Color Light Asha Light Asha Stool Size Small Moderate Stool Color Kt Colored Brown Stool Consistency Loose # Bowel Movements 1 0 0 OBJ DATA Labs 01/09/23 05:30 01/09/23 05:29 Labs: Abnormal Lab Results 01/09/23 01/09/23 01/09/23 05:30 05:30 05:29 WBC 2.5 L RBC 3.17 L Hgb 10.7 L Hct 32.1 L POC Hct MCV 101.3 H Plt Count 33 L* [place] % (Auto) 18.6 H Lymph # (Auto) 0.71 L Absolute Neutrophils 1.19 L PT 18.4 H INR 1.5 H POC VBG pH POC VBG pCO2 at Temp POC VBG pO2 POC VBG HCO3 POC VBG Total CO2 POC Venous O2 Sat POC VBG Base Excess VBG Lactic Acid POC Total CO2 POC Anion Gap POC BUN BUN 4 L Creatinine 0.6 L Calcium 7.8 L POC WB Ioniz Calcium Phosphorus 2.2 L Total Bilirubin 4.0 H Direct Bilirubin 1.3 H GGT 429 H AST 222 H ALT 53 H Lactate Dehydrogenase 259 H Triglycerides 238 H Ethyl Alcohol g/dL 01/08/23 01/08/23 01/08/23 12:57 12:30 12:30 WBC RBC Hgb Hct POC Hct MCV Plt Count [place] % (Auto) Lymph # (Auto) Absolute Neutrophils PT 18.1 H INR 1.4 H POC VBG pH 7.52 H POC VBG pCO2 at Temp 22.9 L POC VBG pO2 53 H POC VBG HCO3 18.8 L POC VBG Total CO2 19.0 L POC Venous O2 Sat 91.0 H POC VBG Base Excess -4.0 L VBG Lactic Acid 3.2 H POC Total CO2 POC Anion Gap POC BUN BUN Creatinine Calcium POC WB Ioniz Calcium Phosphorus 2.1 L Total Bilirubin Direct Bilirubin GGT AST ALT Lactate Dehydrogenase Triglycerides Ethyl Alcohol g/dL 01/08/23 01/08/23 01/08/23 12:30 12:30 12:30 WBC 4.2 L RBC 3.92 L Hgb 13.3 L Hct 38.0 L POC Hct MCV Plt Count 41 L* [place] % (Auto) Lymph # (Auto) 1.27 L Absolute Neutrophils PT INR POC VBG pH POC VBG pCO2 at Temp POC VBG pO2 POC VBG HCO3 POC VBG Total CO2 POC Venous O2 Sat POC VBG Base Excess VBG Lactic Acid POC Total CO2 POC Anion Gap POC BUN BUN Creatinine Calcium POC WB Ioniz Calcium Phosphorus Total Bilirubin 4.6 H Direct Bilirubin 1.4 H GGT AST 326 H ALT 81 H Lactate Dehydrogenase Triglycerides Ethyl Alcohol g/dL 0.052 H 01/08/23 12:23 WBC RBC Hgb Hct POC Hct 40.0 L MCV Plt Count [place] % (Auto) Lymph # (Auto) Absolute Neutrophils PT INR POC VBG pH POC VBG pCO2 at Temp POC VBG pO2 POC VBG HCO3 POC VBG Total CO2 POC Venous O2 Sat POC VBG Base Excess VBG Lactic Acid POC Total CO2 21.0 L POC Anion Gap 19.0 H POC BUN < 3 L BUN Creatinine Calcium POC WB Ioniz Calcium 0.95 L Phosphorus Total Bilirubin Direct Bilirubin GGT AST ALT Lactate Dehydrogenase Triglycerides Ethyl Alcohol g/dL Meds: Medications Albuterol/Ipratropium (Ipratropium/Albuterol 3 Ml Ampul.Neb) 3 ml NEB Q4HP PRN PRN Reason: Shortness Of Breath Chlordiazepoxide HCl (Chlordiazepoxide 25 Mg Capsule) 50 mg PO UD PRN; Protocol PRN Reason: Alcohol Withdrawal/Assess CIWA Last Admin: 01/09/23 00:30 Dose: 50 mg Docusate Sodium (Docusate Sodium 100 Mg Capsule) 100 mg PO BID NELIDA Last Admin: 01/08/23 21:11 Dose: Not Given Folic Acid (Folic Acid 1 Mg Tablet) 1 mg PO DAILY [facility] Haloperidol Lactate (Haloperidol Lactate 5 Mg/Ml Vial) 0.5 mg IM Q2HP PRN PRN Reason: Alcohol Withdrawal/Assess CIWA Potassium Chloride 40 meq/ (Dextrose) 520 mls @ 130 mls/hr IV UD PRN PRN Reason: Potassium Level < 3 Magnesium Sulfate (Magnesium Sulfate) 2 gm in 50 mls @ 25 mls/hr IV UD PRN PRN Reason: Magnesium Level </= 1.6 Last Infusion: 01/08/23 23:35 Dose: Infused Thiamine HCl 100 mg/ Sodium (Chloride) 51 mls @ 50 mls/hr IV DAILY [facility] Iron Carb/Multivit/Smith/Folic Acid (Multivit,Ther Iron,Ca,Fa & Min 1 Tablet) 1 tab PO DAILY [facility] Lorazepam (Lorazepam 2 Mg/Ml Vial) 0 mg IV UD PRN; Protocol PRN Reason: Alcohol Withdrawal/Assess CIWA Last Admin: 01/08/23 21:11 Dose: 2 mg Ondansetron HCl (Ondansetron 4 Mg/2 Ml Vial) 4 mg IV Q4HP PRN PRN Reason: Nausea And Vomiting Pantoprazole Sodium (Pantoprazole 40 Mg Tablet) 40 mg PO QAMAC NELIDA Polyethylene Glycol (Polyethylene Glycol 3350 17 Gm Packet) 17 gm PO DAILYP PRN PRN Reason: Constipation Potassium Chloride (Potassium Chloride 20 Meq Tablet) 40 meq PO UD PRN PRN Reason: Potassium Level of 3-3.5 Potassium Chloride (Potassium Chloride 20 Meq Tablet) 40 meq PO UD PRN PRN Reason: Potassium Level < 3 Senna (Sennosides 1 Tablet) 2 tab PO DAILYP PRN PRN Reason: Constipation Sodium Chloride (0.9 % Sodium Chloride 10 Ml Syringe) 10 ml IV Q8 [facility] Last Admin: 01/09/23 06:01 Dose: 10 ml A/P Narrative A/P Narrative: A: *Alcohol withdrawal, severe: high risk for DT's (h/o) *Respiratory alkalosis: 2/2 above, *Lactic acidosis: 2/2 above, improved *Pancytopenia 2/2 alcoholism & cirrhosis: worsened -Leukopenia -Macrocytic Anemia -Thrombocytopenia *Alcoholic cirrhosis w/varies noted on CT: no ascites *Coagulopathy: 2/2 above *Alcoholic hepatitis: MDF less than 32 *Obesity: BMI 30, lifestyle modification *Alcohol abuse: Patient desiring to quit P: -CIWA, as needed benzodiazepines -Vitamins/minerals -Monitor vitals closely -IV fluid d/c, follow-up lactate and vbg -monitor inr -monitor cbc -check b12/folate -Follow-up with gastroenterology for cirrhosis -f/u with Dr. Gibbs -pt/ot -ppx: SCD (hold chemical for plt<50k) Time Spent With Patient Time: Total time spent is greater than 50% in coordination of care (as documented) at patient's floor/unit and/or counseling patient: Critical Care Time: Yes Total Critical Care Time: 50
[2023-01-09] MEDS: DOCUSATE SODIUM 100 MG CAPSULE PO SCH ×2 (08:40→19:52)
[2023-01-09] MEDS: THIAMINE 100 MG in 0.9 % SODIUM CHLORIDE 50 ML IV SCH (08:42)
[2023-01-09] MEDS: FOLIC ACID 1 MG TABLET PO SCH (08:47)
[2023-01-09] MEDS: MULTIVIT,THER IRON,CA,FA & MIN 1 TABLET PO SCH (08:47)
[2023-01-09] MEDS: LORazepam 2 MG/ML VIAL IV PRN (08:47)
[2023-01-09] MEDS: PANTOPRAZOLE 40 MG TABLET PO SCH (09:00)
--- NOTE | 2023-01-09 13:58 | EKG ---
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
[2023-01-10] MEDS: 0.9 % SODIUM CHLORIDE 10 ML SYRINGE IV SCH ×3 (05:32→21:48)
[2023-01-10 07:25] LABS: Basophils # (Auto) 0.02 K/mcL (0.00-0.30); Basophils % (Auto) 0.7 % (0.0-2.0); Eosinophils % (Auto) 3.3 % (0.0-7.0); Hematocrit 35.9 % (40.1-51.0); Hemoglobin 11.8 g/dL (13.7-17.5); Lymphocytes # (Auto) 0.98 K/mcL (1.50-4.80); Lymphocytes % (Auto) 32.3 % (15.5-49.0); Mean Cell Volume 104.1 fL (80.0-100.0); Mean Corpuscular HGB Conc 32.9 g/dL (31.0-36.0); Mean Platelet Volume 9.5 fL (8.8-12.5); Monocytes # (Auto) 0.53 K/mcL (0.10-0.90); Monocytes % (Auto) 17.5 % (1.0-12.0); Neutrophils % (Auto) 45.9 % (38.0-78.0); Platelet Count 42 K/mcL (140-440); RBC 3.45 M/mcL (4.63-6.08)
[2023-01-10 07:42] LABS: ALT/SGPT 52 U/L (<40); AST/SGOT 193 U/L (<40); Albumin 3.8 gm/dL (3.2-5.2); Albumin/Globulin Ratio 1.3 (1.0-2.3); Alkaline Phosphatase 83 U/L (39-117); Bilirubin,Direct 1.2 mg/dL (<0.3); Bilirubin,Total 3.1 mg/dL (0.1-1.0); Blood Urea Nitrogen 5 mg/dL (6-20); Calcium 8.3 mg/dL (8.6-10.4); Carbon Dioxide 21 mmol/L (22-30); Chloride 103 mmol/L (96-108); Glomerular Filtration Rate 124; Glucose 89 mg/dL (70-105); Lactate Dehydrogenase 264 U/L (135-225); Phosphorous 2.7 mg/dL (2.5-4.5); Triglycerides 63 mg/dL (<150); Uric Acid 5.2 mg/dL (2.5-8.0)
--- NOTE | 2023-01-10 08:06 | Internal Med Progress Note ---
SUBJECTIVE Subjective Patient information: Note initiated : 01/10/23 at 8:04 am Service Date, if different from initiated Date: [] Patient: Kalin Cosby a 42 y/o M admitted on 01/08/23 for detox. Chief Complaint: [] Interval history: History of present illness: Mr. Cosby is a 42 year old M Presents the ED with alcohol withdrawal symptoms. Patient wanted to detox off alcohol and was attempting to do this at home, weaning down his alcohol intake. Patient states he typically drinks 8-10 beers a day, no liquor. Started tapering down end of last week. Sunday he says he started having visual and auditory hallucinations tremors rapid breathing unstable on his feet rapid breathing at times. This continue to worsen until today where the symptoms became worse enough that he felt he needed to come into the ED. His last drink of alcohol was this morning. She denies any headache fever chills nausea or vomiting. Has some vague abdominal achy pain in the upper quadrants bilaterally but a CT abdomen pelvis was negative for acute pathology other than cirrhosis with spontaneous portosystemic shunts. No ascites. He was mildly tachypneic in the ED and tachycardic 110. He has a history of pancytopenia presumably from alcoholism and labs are similar to the past including a leukopenia anemia thrombocytopenia 41,000. INR 1.4. VBG shows a respiratory alkalosis with a pH of 7.5 and a CO2 of 23, including a lactate of 3.2. Magnesium was borderline low at 1.6. Phos pending. Total bilirubin is up to 4.6 mostly unconjugated. AST 326 with ALT of 81. Patient started on Ativan in the ED with some symptomatology improvement. Patient was here last May for alcohol withdrawal. 01/09 Mediocre sleep last night. Elevated CIWA scores. Getting as needed Ativan and Librium. Appears relatively comfortable this morning does have some tremors still. Pancytopenia slightly worse than yesterday. Elevated bilirubin slightly improved. Transaminitis. B12 and folate levels okay. Patient feels groggy. Says he has a little bit of diarrhea which is common for him 01/10 Patient doing well. Withdrawals symptoms much improved. Low CIWA. Librium last given yesterday early evening. Pancytopenia present similar to yesterday. Review of Systems: Pertinent positives as above. Denies headache/fever/chills/nausea/vomiting/ches t pain/cough/dyspnea. PHYSICAL EXAM General: Alert, Awake, No acute Distress, obese Eyes/N/T: EOMI, no scleral icterus, Head/Neck: neck supple, full ROM, CV: Mildly tacky but regular, No murmurs, Pulm: Clear b/l, no wheezing/rhonchi/rales, no respiratory distress Abd: soft, nontender, +BS x4 Ext: no clubbing/cyanosis/edema, nontender Neuro: Alert, no focal deficits, moves all extremities, , sensations intact b/l upper/lower, minimal tremors Psychiatric: Skin: warm/dry, normal color Constitutional Vitals: Vital Signs Temp Pulse Resp BP Pulse Ox O2 Del Method O2 Flow Rate 97.6 F 95 H 16 121/76 95 Room Air 2 01/10/23 04:00 01/10/23 06:00 01/10/23 06:00 01/10/23 06:00 01/10/23 06:00 01/10/23 06:00 01/10/23 00:00 Period Temp Pulse Resp BP Sys/Rosen Pulse Ox O2 Del Method O2 Flow Rate Last 24 Hr 97.6 F-98.4 F 81-97 16-30 106-127/58-85 93-100 Nasal Cannula- Room Air 1-2 Intake and Output 01/09/23 01/10/23 01/10/23 19:59 03:59 11:59 Intake Total 240 400 Output Total 1100 675 Balance -1100 240 -275 Weight 97.522 kg 97.205 kg Intake & Output: Intake & Output 01/09/23 01/10/23 01/10/23 19:59 03:59 11:59 Intake Total 240 400 Output Total 1100 675 Balance -1100 240 -275 Weight 97.522 kg 97.205 kg Intake: Oral 240 400 Output: Void Amount 1100 675 Other: Meal Dinner Percent of Meal Consumed 50% Feeding Ability Assist with Tray Set Up Urine Appearance Clear Urine Color Dark Asha Urine Odor Strong OBJ DATA Labs 01/10/23 05:33 01/10/23 05:33 Labs: Abnormal Lab Results 01/10/23 01/10/23 01/09/23 05:33 05:33 08:21 WBC 3.0 L RBC 3.45 L Hgb 11.8 L Hct 35.9 L POC Hct MCV 104.1 H MCH 34.2 H Plt Count 42 L* [place] % (Auto) 17.5 H Lymph # (Auto) 0.98 L Absolute Neutrophils 1.39 L PT INR POC VBG pH 7.47 H POC VBG pCO2 at Temp 33.4 L POC VBG pO2 62 H POC VBG HCO3 POC VBG Total CO2 POC Venous O2 Sat 93.0 H POC VBG Base Excess VBG Lactic Acid Carbon Dioxide 21 L POC Total CO2 POC Anion Gap POC BUN BUN 5 L Creatinine 0.6 L Calcium 8.3 L POC WB Ioniz Calcium Phosphorus Total Bilirubin 3.1 H Direct Bilirubin 1.2 H GGT 416 H AST 193 H ALT 52 H Lactate Dehydrogenase 264 H Triglycerides Ethyl Alcohol g/dL 01/09/23 01/09/23 01/09/23 05:30 05:30 05:29 WBC 2.5 L RBC 3.17 L Hgb 10.7 L Hct 32.1 L POC Hct MCV 101.3 H MCH Plt Count 33 L* [place] % (Auto) 18.6 H Lymph # (Auto) 0.71 L Absolute Neutrophils 1.19 L PT 18.4 H INR 1.5 H POC VBG pH POC VBG pCO2 at Temp POC VBG pO2 POC VBG HCO3 POC VBG Total CO2 POC Venous O2 Sat POC VBG Base Excess VBG Lactic Acid Carbon Dioxide POC Total CO2 POC Anion Gap POC BUN BUN 4 L Creatinine 0.6 L Calcium 7.8 L POC WB Ioniz Calcium Phosphorus 2.2 L Total Bilirubin 4.0 H Direct Bilirubin 1.3 H GGT 429 H AST 222 H ALT 53 H Lactate Dehydrogenase 259 H Triglycerides 238 H Ethyl Alcohol g/dL 01/08/23 01/08/23 01/08/23 12:57 12:30 12:30 WBC RBC Hgb Hct POC Hct MCV MCH Plt Count [place] % (Auto) Lymph # (Auto) Absolute Neutrophils PT 18.1 H INR 1.4 H POC VBG pH 7.52 H POC VBG pCO2 at Temp 22.9 L POC VBG pO2 53 H POC VBG HCO3 18.8 L POC VBG Total CO2 19.0 L POC Venous O2 Sat 91.0 H POC VBG Base Excess -4.0 L VBG Lactic Acid 3.2 H Carbon Dioxide POC Total CO2 POC Anion Gap POC BUN BUN Creatinine Calcium POC WB Ioniz Calcium Phosphorus 2.1 L Total Bilirubin Direct Bilirubin GGT AST ALT Lactate Dehydrogenase Triglycerides Ethyl Alcohol g/dL 01/08/23 01/08/23 01/08/23 12:30 12:30 12:30 WBC 4.2 L RBC 3.92 L Hgb 13.3 L Hct 38.0 L POC Hct MCV MCH Plt Count 41 L* [place] % (Auto) Lymph # (Auto) 1.27 L Absolute Neutrophils PT INR POC VBG pH POC VBG pCO2 at Temp POC VBG pO2 POC VBG HCO3 POC VBG Total CO2 POC Venous O2 Sat POC VBG Base Excess VBG Lactic Acid Carbon Dioxide POC Total CO2 POC Anion Gap POC BUN BUN Creatinine Calcium POC WB Ioniz Calcium Phosphorus Total Bilirubin 4.6 H Direct Bilirubin 1.4 H GGT AST 326 H ALT 81 H Lactate Dehydrogenase Triglycerides Ethyl Alcohol g/dL 0.052 H 01/08/23 12:23 WBC RBC Hgb Hct POC Hct 40.0 L MCV MCH Plt Count [place] % (Auto) Lymph # (Auto) Absolute Neutrophils PT INR POC VBG pH POC VBG pCO2 at Temp POC VBG pO2 POC VBG HCO3 POC VBG Total CO2 POC Venous O2 Sat POC VBG Base Excess VBG Lactic Acid Carbon Dioxide POC Total CO2 21.0 L POC Anion Gap 19.0 H POC BUN < 3 L BUN Creatinine Calcium POC WB Ioniz Calcium 0.95 L Phosphorus Total Bilirubin Direct Bilirubin GGT AST ALT Lactate Dehydrogenase Triglycerides Ethyl Alcohol g/dL Meds: Medications Albuterol/Ipratropium (Ipratropium/Albuterol 3 Ml Ampul.Neb) 3 ml NEB Q4HP PRN PRN Reason: Shortness Of Breath Chlordiazepoxide HCl (Chlordiazepoxide 25 Mg Capsule) 50 mg PO UD PRN; Protocol PRN Reason: Alcohol Withdrawal/Assess CIWA Last Admin: 01/09/23 17:53 Dose: 25 mg Docusate Sodium (Docusate Sodium 100 Mg Capsule) 100 mg PO BID [facility] Last Admin: 01/09/23 19:52 Dose: Not Given Folic Acid (Folic Acid 1 Mg Tablet) 1 mg PO DAILY [facility] Last Admin: 01/09/23 08:47 Dose: 1 mg Haloperidol Lactate (Haloperidol Lactate 5 Mg/Ml Vial) 0.5 mg IM Q2HP PRN PRN Reason: Alcohol Withdrawal/Assess CIWA Potassium Chloride 40 meq/ (Dextrose) 520 mls @ 130 mls/hr IV UD PRN PRN Reason: Potassium Level < 3 Magnesium Sulfate (Magnesium Sulfate) 2 gm in 50 mls @ 25 mls/hr IV UD PRN PRN Reason: Magnesium Level </= 1.6 Last Infusion: 01/08/23 23:35 Dose: Infused Thiamine HCl 100 mg/ Sodium (Chloride) 51 mls @ 50 mls/hr IV DAILY NELIDA Last Infusion: 01/09/23 10:45 Dose: Infused Iron Carb/Multivit/Field Reimbursement Manager/Folic Acid (Multivit,Ther Iron,Ca,Fa & Min 1 Tablet) 1 tab PO DAILY NELIDA Last Admin: 01/09/23 08:47 Dose: 1 tab Lorazepam (Lorazepam 2 Mg/Ml Vial) 0 mg IV UD PRN; Protocol PRN Reason: Alcohol Withdrawal/Assess CIWA Last Admin: 01/09/23 08:47 Dose: 2 mg Ondansetron HCl (Ondansetron 4 Mg/2 Ml Vial) 4 mg IV Q4HP PRN PRN Reason: Nausea And Vomiting Last Admin: 01/09/23 18:17 Dose: 4 mg Pantoprazole Sodium (Pantoprazole 40 Mg Tablet) 40 mg PO QAMAC [facility] Last Admin: 01/09/23 09:00 Dose: Not Given Polyethylene Glycol (Polyethylene Glycol 3350 17 Gm Packet) 17 gm PO DAILYP PRN PRN Reason: Constipation Potassium Chloride (Potassium Chloride 20 Meq Tablet) 40 meq PO UD PRN PRN Reason: Potassium Level of 3-3.5 Last Admin: 01/09/23 10:20 Dose: 40 meq Potassium Chloride (Potassium Chloride 20 Meq Tablet) 40 meq PO UD PRN PRN Reason: Potassium Level < 3 Senna (Sennosides 1 Tablet) 2 tab PO DAILYP PRN PRN Reason: Constipation Sodium Chloride (0.9 % Sodium Chloride 10 Ml Syringe) 10 ml IV Q8 [facility] Last Admin: 01/10/23 05:32 Dose: 10 ml A/P Narrative A/P Narrative: A: *Alcohol withdrawal, severe: high risk for DT's (h/o) *Respiratory alkalosis: 2/2 above, *Lactic acidosis: 2/2 above, improved *Pancytopenia 2/2 alcoholism & cirrhosis: -Leukopenia -Macrocytic Anemia -Thrombocytopenia *Alcoholic cirrhosis w/varies noted on CT: no ascites -Child-Durant= Class B; MELD=19(6%) *Coagulopathy: 2/2 above *Alcoholic hepatitis: MDF less than 32 *Obesity: BMI 30, lifestyle modification *Alcohol abuse: Patient desiring to quit P: -CIWA, as needed benzodiazepines -Vitamins/minerals -Monitor vitals closely -monitor inr -monitor cbc -Follow-up with gastroenterology for cirrhosis -f/u with Dr. Gibbs -pt/ot -ppx: SCD (hold chemical for plt<50k) Time Spent With Patient Time: Total time spent is greater than 50% in coordination of care (as documented) at patient's floor/unit and/or counseling patient: Subsequent: Total time with patient: 50 - 65 Minutes
[2023-01-10] MEDS: DOCUSATE SODIUM 100 MG CAPSULE PO SCH ×2 (08:08→19:56)
[2023-01-10] MEDS: MULTIVIT,THER IRON,CA,FA & MIN 1 TABLET PO SCH (08:08)
[2023-01-10] MEDS: PANTOPRAZOLE 40 MG TABLET PO SCH (08:08)
[2023-01-10] MEDS: FOLIC ACID 1 MG TABLET PO SCH (08:08)
[2023-01-10] MEDS: THIAMINE 100 MG in 0.9 % SODIUM CHLORIDE 50 ML IV SCH (08:08)
--- NOTE | 2023-01-10 11:00 | Discharge Summary ---
Discharge Provider Provider IMPORTANT FOLLOW-UP INFORMATION FOR PCP: Patient information: Note initiated : 01/10/23 at 10:58 am Service Date, if different from initiated Date: [] Patient: Kalin Cosby a 42 y/o M admitted on 01/08/23 for detox. Chief Complaint: [] Date of admission: 01/08/23 17:29 Discharge date: 01/11/23 Primary care physician: PCP No Consults: 01/08/23 15:30 Consult to Physician [CONS] Stat Comment: Consulting Provider: Osmel Rothman Reason For Exam: Physician to Consult COURSE Hospital Course Hospital course: History of present illness: Mr. Cosby is a 42 year old M Presents the ED with alcohol withdrawal symptoms. Patient wanted to detox off alcohol and was attempting to do this at home, weaning down his alcohol intake. Patient states he typically drinks 8-10 beers a day, no liquor. Started tapering down end of last week. Sunday he says he started having visual and auditory hallucinations tremors rapid breathing unstable on his feet rapid breathing at times. This continue to worsen until today where the symptoms became worse enough that he felt he needed to come into the ED. His last drink of alcohol was this morning. She denies any headache fever chills nausea or vomiting. Has some vague abdominal achy pain in the upper quadrants bilaterally but a CT abdomen pelvis was negative for acute pathology other than cirrhosis with spontaneous portosystemic shunts. No ascites. He was mildly tachypneic in the ED and tachycardic 110. He has a history of pancytopenia presumably from alcoholism and labs are similar to the past including a leukopenia anemia thrombocytopenia 41,000. INR 1.4. VBG shows a respiratory alkalosis with a pH of 7.5 and a CO2 of 23, including a lactate of 3.2. Magnesium was borderline low at 1.6. Phos pending. Total bilirubin is up to 4.6 mostly unconjugated. AST 326 with ALT of 81. Patient started on Ativan in the ED with some symptomatology improvement. Patient was here last May for alcohol withdrawal. 01/09 Mediocre sleep last night. Elevated CIWA scores. Getting as needed Ativan and Librium. Appears relatively comfortable this morning does have some tremors still. Pancytopenia slightly worse than yesterday. Elevated bilirubin slightly improved. Transaminitis. B12 and folate levels okay. Patient feels groggy. Says he has a little bit of diarrhea which is common for him 01/10 Patient doing well. Withdrawals symptoms much improved. Low CIWA. Librium last given yesterday early evening. Pancytopenia present similar to yesterday. 01/11 Patient doing well. No overnight event or new complaints. Patient stable for discharge and follow-up with Dr. Gibbs and PCP and AA group. Also follow-up with GI for cirrhosis. A: *Alcohol withdrawal, severe: high risk for DT's (h/o) *Respiratory alkalosis: 2/2 above, *Lactic acidosis: 2/2 above, improved *Pancytopenia 2/2 alcoholism & cirrhosis: -Leukopenia -Macrocytic Anemia -Thrombocytopenia *Alcoholic cirrhosis w/varies noted on CT: no ascites -Child-Durant= Class B; MELD=19(6%) *Coagulopathy: 2/2 above *Alcoholic hepatitis: MDF less than 32 *Obesity: BMI 30, lifestyle modification *Alcohol abuse: Patient desiring to quit P: -Follow-up with gastroenterology for cirrhosis -f/u with Dr. Gibbs Discharge diagnosis: Alcohol withdrawal respiratory alkalosis lactic acidosis pancytopenia Secondary discharge diagnosis: Alcoholic cirrhosis alcoholic hepatitis coagulopathy obesity alcohol abuse Time Spent with Patient Time attestation: Total time spent providing and/or coordinating discharge services: Time spent: Greater than 30 minutes EXAM Constitutional Vitals: Temp Pulse Resp BP Pulse Ox O2 Del Method O2 Flow Rate 98.0 F 97 H 18 114/71 92 Room Air 2 01/10/23 08:00 01/10/23 10:01/10/23 10:01/10/23 10:01/10/23 10:01/10/23 10:01/10/23 00:00 Discharge Data Data Completed and Pending Labs on day of discharge: Labs from last 24 hours 01/10/23 01/10/23 05:33 05:33 WBC 3.0 L RBC 3.45 L Hgb 11.8 L Hct 35.9 L MCV 104.1 H MCH 34.2 H MCHC 32.9 RDW 14.0 Plt Count 42 L* MPV 9.5 Immature Gran % (Auto) 0.3 Neut % (Auto) 45.9 Lymph % (Auto) 32.3 [place] % (Auto) 17.5 H Eos % (Auto) 3.3 Baso % (Auto) 0.7 Lymph # (Auto) 0.98 L [place] # (Auto) 0.53 Eos # (Auto) 0.10 Baso # (Auto) 0.02 Immature Gran # 0.01 Absolute Neutrophils 1.39 L Sodium 135 Potassium 3.7 Chloride 103 Carbon Dioxide 21 L Anion Gap 11.0 BUN 5 L Creatinine 0.6 L GFR Calculation 124 Glucose 89 Uric Acid 5.2 Calcium 8.3 L Phosphorus 2.7 Magnesium 2.0 Total Bilirubin 3.1 H Direct Bilirubin 1.2 H GGT 416 H AST 193 H ALT 52 H Alkaline Phosphatase 83 Lactate Dehydrogenase 264 H Total Protein 6.8 Albumin 3.8 Globulin 3.0 Albumin/Globulin Ratio 1.3 Triglycerides 63 Discharge Plan Patient/Caregiver Discharge Instructions Activity: increase activity as tolerated Diet: Regular Diet Activity Restrictions/Additional Instructions: Follow-up with PCP in 3 to 7 days. Referral to see gastroenterology for cirrhosis in 3 to 14 days. Prescriptions: No Action No Known Home Meds Follow Up Plan Follow up with: Nathaly Gibbs DO [Physician] - (Alcohol use disorder) Patient Disposition: Home, Self-Care Prognosis: Undetermined Overall status at discharge: patient is progressing back to baseline Discharge Orders: Discharge Order (Routine); Ordered 01/11/23 Ordered By: Osmel Rothman
[2023-01-11] MEDS: 0.9 % SODIUM CHLORIDE 10 ML SYRINGE IV SCH (05:51)
[2023-01-11 06:54] LABS: INR 1.5 (0.9-1.1); Prothrombin Time 18.9 sec (11.9-14.5)
[2023-01-11] MEDS: DOCUSATE SODIUM 100 MG CAPSULE PO SCH (08:23)
[2023-01-11] MEDS: THIAMINE 100 MG in 0.9 % SODIUM CHLORIDE 50 ML IV SCH (08:30)
[2023-01-11] MEDS: PANTOPRAZOLE 40 MG TABLET PO SCH (08:31)
[2023-01-11] MEDS: FOLIC ACID 1 MG TABLET PO SCH (08:31)
[2023-01-11] MEDS: MULTIVIT,THER IRON,CA,FA & MIN 1 TABLET PO SCH (08:31)
== END 2023-01-11 11:35 | disposition home or self-care (01) | DRG 897 ==
LOC: ED 12:05 → ICU 17:29
PROVIDERS: ADMIT Internal Medicine; ATTEND Internal Medicine